=== PATIENT | male | born 1935 | race Caucasian/White ===

== ENCOUNTER → 2018-03-27 14:21 | Outpatient (CLI) | payer MEDICARE, SELFPAY ==
--- NOTE | 2018-03-27 | NVE_ITS ---
Venous Exam IMPRESSIONS 1. There is no evidence of significant Reflux. 2. No evidence of deep or superficial vein thrombosis involving the left lower extremity History: Left lower extremity pain. Patient denies trauma. Swelling of the left lower extremity. Left lower extremity venous duplex evaluation. Doppler flow study including spectral analysis, color and jordan scale imaging. Location: Vascular laboratory. Patient status: Outpatient. Tables: Venous flow and imaging: + +-------+ + Location Overall Flow properties + +-------+ + Left common femoral Patent Normal phasicity; spontaneous; normal augmentation; compressible + +-------+ + Left saphenofemoral junction Patent Compressible + +-------+ + Left profunda femoral Patent Compressible + +-------+ + Left femoral Patent Normal phasicity; spontaneous; normal augmentation; compressible + +-------+ + Left greater saphenous Patent Normal phasicity; spontaneous; normal augmentation; compressible + +-------+ + Left popliteal Patent Normal phasicity; spontaneous; normal augmentation; compressible + +-------+ + Left posterior tibial Patent Compressible + +-------+ + Left peroneal Patent Compressible + +-------+ + Left gastrocnemius Patent Compressible + +-------+ + Left soleal Patent Compressible + +-------+ + (Report amended ) Electronically signed by: Hunter Concepcion [id number]
== END ==
PROVIDERS: Family Provider Family Medicine; PCP Family Medicine; Visit Provider Family Medicine
DX: M79.605 Pain in left leg (principal)
CPT/HCPCS: 93971

== ENCOUNTER → 2018-08-31 10:34 | Outpatient (CLI) | payer MEDICARE, SELFPAY ==
--- NOTE | 2018-08-31 10:50 | CT_ITS ---
CT head/brain wo con HISTORY: ITS.REASON: PARESTHESIS OF LT HAND ORDERING PHYSICIAN: Leena Villasenor PATIENT AGE: 83 years COMPARISON: . 07/07/2008 TECHNIQUE: Axial images obtained without contrast. Brain and bone windows reviewed. All CT scans at the facility use one or more dose reduction, viz: automated exposure control, ma/kV adjustment per patient size (including targeted exams where dose is matched to indication, i.e. head), or iterative reconstruction technique. FINDINGS: No midline shift, mass effect, intracranial hemorrhage, hydrocephalus, or extra-axial fluid collection is evident. 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 The AVM is not apparent on today's study however, exam is evident without contrast. The calvarium has an unremarkable appearance. No mastoid effusion. No sinus air-fluid levels.. IMPRESSION: No acute intracranial findings
== END ==
PROVIDERS: PCP Family Medicine; Visit Provider Nurse Practitioner
DX: R20.2 Paresthesia of skin (principal)
CPT/HCPCS: 70450

== ENCOUNTER → 2020-03-23 09:29 | Outpatient (CLI) | payer MEDICARE, SELFPAY ==
--- NOTE | 2020-03-23 09:44 | XR_ITS ---
PROCEDURE: XR CHEST 2V CLINICAL HISTORY: SOB COMPARISON: CXR CHEST(2 VIEWS-NOT PORTABLE) from 11/03/2014 CXR CHEST(2 VIEWS-NOT PORTABLE) from 03/28/2017 XR CHEST PORTABLE from 02/09/2020 FINDINGS: The cardiomediastinal silhouette and pulmonary vascularity are within normal limits. The lungs are clear without infiltrates, suspicious nodules, or pleural effusions. Surgical clips are present in the epigastric region. No acute bony anomalies. IMPRESSION: No acute findings. Dictated by: Cooper Alonso MD 03/23/2020 11:56 Electronically signed by Cooper Alonso MD in [facility] 03/23/2020 11:56
[2020-03-23 10:36] LABS: Microscopic, Urine URINE MICROSCOPIC (MICROSCOPIC)
[2020-03-23 11:12] LABS: Basophils % 0.5 % (0.1-2.0); Eosinophils # 0.1 K/mm3 (0.0-0.4); Eosinophils % 1.5 % (0.1-12.0); Hemoglobin 14.9 g/dL (14.1-18.0); Lymphocytes # 1.3 K/mm3 (0.7-4.5); Lymphocytes % 30.2 % (10-50); Mean Corpuscular HGB Conc 32.4 g/dL (31.8-35.4); Mean Corpuscular Hemoglobin 30.4 pg (27.0-31.2); Mean Corpuscular Volume 93.7 fl (80-94); Mean Platelet Volume 10.2 fl (7.4-10.4); Monocytes # 0.3 K/mm3 (0.1-1.0); Monocytes % 7.3 % (1.7-9.3); Neutrophils # 2.6 K/mm3 (1.8-7.8); Neutrophils % 60.6 % (37.0-80.0); Platelet Count 178 K/mm3 (142-424); Red Cell Distribution Width 12.9 % (11.5-17.5); White Blood Count 4.3 K/mm3 (4.8-10.8)
[2020-03-23 12:23] LABS: Alanine Aminotransferase 16 U/L (12-78); Albumin Level 4.3 g/dl (3.5-5.0); Albumin/Globulin Ratio 1.7 (1.1-1.8); Alkaline Phosphatase 50 U/L (38-126); Aspartate Amino Transferase 26 U/L (17-59); Bilirubin,Total 0.5 mg/dl (0.2-1.3); Blood Urea Nitrogen 17 mg/dl (9-20); Calcium 9.7 mg/dl (8.4-10.2); Carbon Dioxide 29 mmol/L (22.0-30.0); Chloride 104 mmol/L (98-107); Estimated Glomerular Filt Rate 72 ml/min (>60); GFR (African American) 87 ML/MIN (>60); Globulin 2.6 g/dL (1.3-3.2); Glucose 94 mg/dl (74-100); Sodium 140 mmol/L (136-145); Total Protein,Serum 6.9 g/dl (6.3-8.2)
[2020-03-23 12:32] LABS: NT Pro Brain Natriuretic Pep. 111 pg/mL (0-450)
[2020-03-23 12:54] LABS: Appearance,Urine SL CLOUDY (Clear); Bilirubin,Urine Negative (Negative); Blood, Urine Negative (Negative); Color,Urine YELLOW (Yellow); Glucose,Urine (UA) Negative (Negative); Ketones,Urine Negative (Negative); Leukocyte Esterase,Urine Negative (Negative); Nitrate,Urine Negative (Negative); Protein,Urine Negative (Negative); Thyroid Stimulating Hormone 1.21 uIU/mL (0.465-4.68)
[2020-03-23 13:13] LABS: Amorphous Sediment,Urine 2+ /lpf; Bacteria,Urine Trace /lpf; Squamous Epithelial Cell,Urine Occasional #/hpf (0-5)
== END ==
PROVIDERS: PCP Family Medicine; Visit Provider Family Medicine
DX: R06.02 Shortness of breath (principal); I10 Essential (primary) hypertension
CPT/HCPCS: 36415; 71046; 80053; 81001; 83880; 84443; 85025

== ENCOUNTER → 2021-06-04 10:24 | Outpatient (CLI) | payer MEDICARE, SELFPAY ==
--- NOTE | 2021-06-04 10:27 | CT_ITS ---
PROCEDURE: CT ABDOMEN PELVIS W CON CLINICAL INDICATION: PELVIC PAIN IN MALE Lower abdominal and pelvic pain COMPARISON: No exams were available for comparison TECHNIQUE: IV Contrast: 75ML Isovue 370 Oral Contrast None Axial images obtained with sagittal and coronal reformats. All CT scans at the facility use one or more dose reduction, viz: automated exposure control, ma/kV adjustment per patient size (including targeted exams where dose is matched to indication, i.e. head), or iterative reconstruction technique. FINDINGS: LOWER THORAX: There are extensive coronary artery calcifications present. There is a small hiatal hernia. Epigastric clips are present at the region of the hernia. ABDOMEN & PELVIS: Mild fatty liver. 7 mm isodense changes in the left hepatic lobe inferiorly at the falciform ligament region and may be due to focal fatty infiltration versus a small liver lesion.. A 5 mm hypodensity is present in the right hepatic lobe segment 7 too small to categorize. The spleen, adrenal glands, and pancreas have an unremarkable appearance. There are bilateral parapelvic renal cysts and small right-sided cortical cyst. There is a 4 and a 2 mm stone in the lower pole of the right kidney. No obstructing renal or ureteral calculi. No hydronephrosis. No intestinal obstruction or free air. There is a mild amount of retained colonic feces. No evidence of appendicitis. Scattered colonic diverticula. No evidence of diverticulitis. Prostate is enlarged at 4.8 x 4.4 cm with mild thickening of the urinary bladder wall nonspecific. Multiple pelvic phleboliths are present. There is increased density in the left inguinal canal proximally which could be due to prior hernia repair. Please correlate with surgical history. An enlarged lymph node is an additional consideration. This area measures approximately 2.2 x 1.9 cm. No evidence of inguinal hernia. In the right lower pelvic region laterally there is a 2.3 x 1.6 cm soft tissue density lying between the small bowel and pelvic sidewall anterior and slightly superior to the femoral artery. There are degenerative changes in the lumbar spine. There is an old left 10th rib fracture laterally IMPRESSION: 1. One and possibly 2 hypodense hepatic lesions. These may be due to small cysts too small to categorize. Follow-up may confirm stability. 2. Left nephrolithiasis. Bilateral parapelvic renal cysts. 3. Enlarged prostate with mild thickening of the urinary bladder wall. 4. Soft tissue density left inguinal region which could be due to prior hernia repair, fluid collection, or adenopathy. Small amount fluid or lymph node suspected in the right pelvic region. Follow-up may confirm stability. Dictated by: Cooper Alonso MD 06/04/2021 12:35 Cooper Alonso MD in [facility] 06/04/2021 12:35
== END ==
PROVIDERS: PCP Family Medicine; Visit Provider Family Medicine
DX: R10.2 Pelvic and perineal pain (principal)
CPT/HCPCS: 74177; Q9967

== ENCOUNTER → 2021-06-14 15:40 | Outpatient (CLI) | payer MEDICARE, SELFPAY ==
[2021-06-14 20:26] LABS: Prostate Specific Ag Screen 1.6 ng/ml (0.0-4.0)
== END ==
PROVIDERS: Visit Provider Urology
DX: R97.20 Elevated prostate specific antigen [PSA] (principal); Z12.5 Encounter for screening for malignant neoplasm of prostate
CPT/HCPCS: 36415; G0103

== ENCOUNTER → 2021-07-03 11:32 | Outpatient (CLI) | payer MEDICARE, SELFPAY ==
[2021-07-03 12:16] LABS: Basophils % 0.3 % (0.1-2.0); Eosinophils % 0.1 % (0.1-12.0); Hematocrit 39.9 % (42.0-52.0); Hemoglobin 13.6 g/dL (14.1-18.0); Lymphocytes # 3.2 K/mm3 (0.7-4.5); Lymphocytes % 97.1 % (10-50); Mean Corpuscular HGB Conc 34.2 g/dL (31.8-35.4); Mean Corpuscular Hemoglobin 31.7 pg (27.0-31.2); Mean Corpuscular Volume 92.7 fl (80-94); Mean Platelet Volume 9.2 fl (7.4-10.4); Monocytes % 0.7 % (1.7-9.3); Neutrophils # 0.1 K/mm3 (1.8-7.8); Platelet Count 152 K/mm3 (142-424); Red Cell Distribution Width 14.1 % (11.5-17.5); White Blood Count 3.3 K/mm3 (4.8-10.8)
[2021-07-03 12:37] LABS: Neutrophils % 1.9 % (37.0-80.0)
[2021-07-03 12:40] LABS: MANUAL DIFFERENTIAL MANUAL DIFFERENTIAL (MANUAL DIFF)
[2021-07-03 12:41] LABS: Chloride 106 mmol/L (98-107); Potassium 3.9 mmoL/L (3.5-5.1); Sodium 140 mmol/L (136-145)
[2021-07-03 12:43] LABS: Alanine Aminotransferase 15 U/L (12-78); Aspartate Amino Transferase 30 U/L (17-59); Blood Urea Nitrogen 9 mg/dl (9-20); Estimated Glomerular Filt Rate 71 ml/min (>60); GFR (African American) 86 ML/MIN (>60)
[2021-07-03 12:44] LABS: Albumin Level 4.3 g/dl (3.5-5.0); Albumin/Globulin Ratio 1.5 (1.1-1.8); Alkaline Phosphatase 93 U/L (38-126); Anion Gap 13.9 mEq/L (5-15); Bilirubin,Total 0.6 mg/dl (0.2-1.3); Calcium 9.6 mg/dl (8.4-10.2); Carbon Dioxide 24 mmol/L (22.0-30.0); Eosinophils % 13 % (0-3); Globulin 2.8 g/dL (1.3-3.2); Glucose 87 mg/dl (74-100); Lymphocytes % 17 % (10-50); Monocytes % 10 % (2-9); Neutrophils % 59 % (42-76); Total Cells Counted 100; Total Protein,Serum 7.1 g/dl (6.3-8.2)
[2021-07-03 12:45] LABS: Anisocytosis 1+; Hypochromasia 1+; Microcytosis 1+; Platelet Estimate Normal
== END ==
PROVIDERS: Visit Provider Family Medicine
DX: K52.9 Noninfective gastroenteritis and colitis, unspecified (principal)
CPT/HCPCS: 36415; 80053; 85007; 85025

== ENCOUNTER 2021-07-03 13:28 | Emergency (ER) | payer MEDICARE, SELFPAY ==
[2021-07-03 13:29] VITALS: BP 142/83; PULSE 90; RESP 14; TEMP 36.8; O2SAT 96; BMI 27.1
--- NOTE | 2021-07-03 13:47 | HMH.EDGENADL ---
ED Disposition Clinical Impression: Diarrhea Disposition: Home, Self-Care Condition on Discharge: Good Additional Instructions: continue home meds. Drink plenty of fluid. Return to ED if new symptoms. Referrals: Alberto Skinner MD [Primary Care Provider] - - Critical Care Critical Care Time: No Attestation: On , the high probability of a clinically significant, sudden or life threatening deterioration of the following system(s) required my full and direct attention, intervention and personal management. The time I documented below is in addition to time spent performing reported procedures but includes the following listed in this critical care notation. Medical Decision Making - Medical Records MR Comment: patient received one liter of fluid.general labs were ordered. all labs were normal. Abdominal exam is benign. He felt normal after IV fluid. - Viraj Inquiry Pt receiving controlled substance: No Viraj was queried for this patient: No Vital Signs: 07/03/21 13:29 07/03/21 14:15 Temperature 98.3 F Temperature Source Oral Pulse Rate 77 Pulse Rate [Right] 90 Respiratory Rate 14 Blood Pressure 160/88 H Blood Pressure [Right Arm] 142/83 H Blood Pressure Mean [Right Arm] 102 02 Sat by Pulse Oximetry 96 97 Oxygen Delivery Method Room Air - Lab Data Lab Results 07/03/21 14:00: Urine Color Yellow, Urine Appearance Clear, Urine pH 5.0, Ur Specific [place] <= 1.005, Urine Protein Negative, Urine Glucose (UA) Negative, Urine Ketones Negative, Urine Blood Negative, Urine Nitrate Negative, Urine Bilirubin Negative, Urine Urobilinogen 0.2, Ur Leukocyte Esterase Negative, Urine RBC None, Urine WBC 3-5, Ur Squamous Epith Cells Occasional, Urine Bacteria None 07/03/21 14:00: WBC 7.0 D, RBC 4.82, Hgb 14.6, Hct 44.0, MCV 91.2, MCH 30.3, MCHC 33.2, RDW 14.0, Plt Count 179, MPV 8.8, Neut % (Auto) 65.4, Lymph % (Auto) 16.6, [place] % (Auto) 5.9, Eos % (Auto) 11.4, Baso % (Auto) 0.6, Neut # (Auto) 4.6, Lymph # (Auto) 1.2, [place] # (Auto) 0.4, Eos # (Auto) 0.8 H, Baso # (Auto) 0.0 07/03/21 14:00: Sodium 140, Potassium 3.6, Chloride 105, Carbon Dioxide 24, Anion Gap 14.6, BUN 8 L, Creatinine 0.90, Estimated Creat Clear 72, Estimated GFR 81, Est GFR ( Amer) 98, Glucose 88, Calcium 8.8, Total Bilirubin 0.8, AST 33, ALT 15, Alkaline Phosphatase 80, Total Protein 6.6, Albumin 4.0, Globulin 2.6, Albumin/Globulin Ratio 1.5 Result diagrams: 07/03/21 14:00 07/03/21 14:00 Orders (Tests/Meds): ED MEDICATIONS Generic Name Dose Route Start Last Admin Trade Name Freq PRN Reason Stop Dose Admin Sodium Chloride 1,000 mls @ 999 mls/hr 07/03/21 14:00 07/03/21 13:58 Sod Chlor 0.9% 1000ml Bag IV 07/03/21 15:00 999 mls/hr .Q1H1M DEN Administration General Adult HPI - General Stated complaint: possible dehydration, diarrhea for a week, passed Time Seen by Provider: 07/03/21 13:47 - History of Present Illness HPI narrative: 85 year old male.he had diarrhea for the past few days, stopped today, he has no appetite, his son thought that he may be dehydrated. no fever. no vomiting. no abdominal pain. - Related Data Home Medications Medication Instructions Recorded Confirmed Ergocalciferol (Vitamin D2) 1 tab PO DAILY 02/09/20 06/27/21 [Drisdol 50,000 units (1.25mg) capsule] Fenofibrate,Micronized [Tricor 1 tab PO DAILY 02/09/20 06/27/21 134mg] Latanoprost [Xalatan 0.005% Ophth 1 drops EYE-BOTH HS 02/09/20 06/27/21 Soln 2.5mL] Ramipril 20 mg PO DAILY 02/09/20 06/27/21 Simvastatin 1 tab PO DAILY 02/09/20 06/27/21 Tamsulosin HCl 1 tab PO DAILY 02/09/20 06/27/21 amlodipine 10 mg tablet 10 mg PO DAILY tab 06/27/21 06/27/21 trazodone 50 mg tablet 50 mg PO DAILY tab 06/27/21 06/27/21 Allergies Allergy/AdvReac Type Severity Reaction Status Date / Time Penicillin Allergy Unknown Uncoded 06/14/21 15:03 [facility] History - Hepatitis A Screen Attestation statement:: This patient
[2021-07-03 14:06] LABS: Microscopic, Urine URINE MICROSCOPIC (MICROSCOPIC)
[2021-07-03 14:10] LABS: Appearance,Urine CLEAR (Clear); Bilirubin,Urine Negative (Negative); Blood, Urine Negative (Negative); Color,Urine YELLOW (Yellow); Glucose,Urine (UA) Negative (Negative); Ketones,Urine Negative (Negative); Leukocyte Esterase,Urine Negative (Negative); Nitrate,Urine Negative (Negative); Protein,Urine Negative (Negative); Specific Gravity, Urine <= 1.005 (1.005-1.030); Urobilinogen,Urine 0.2 EU/dl (0.2)
[2021-07-03 14:12] LABS: Basophils % 0.6 % (0.1-2.0); Eosinophils # 0.8 K/mm3 (0.0-0.4); Eosinophils % 11.4 % (0.1-12.0); Hemoglobin 14.6 g/dL (14.1-18.0); Lymphocytes # 1.2 K/mm3 (0.7-4.5); Lymphocytes % 16.6 % (10-50); Mean Corpuscular HGB Conc 33.2 g/dL (31.8-35.4); Mean Corpuscular Hemoglobin 30.3 pg (27.0-31.2); Mean Corpuscular Volume 91.2 fl (80-94); Mean Platelet Volume 8.8 fl (7.4-10.4); Monocytes # 0.4 K/mm3 (0.1-1.0); Monocytes % 5.9 % (1.7-9.3); Neutrophils # 4.6 K/mm3 (1.8-7.8); Neutrophils % 65.4 % (37.0-80.0); Platelet Count 179 K/mm3 (142-424); Red Blood Count 4.82 M/mm3 (4.60-6.20)
[2021-07-03 14:15] VITALS: BP 160/88; PULSE 77; O2SAT 97
[2021-07-03 14:19] LABS: Squamous Epithelial Cell,Urine Occasional #/hpf (0-5)
[2021-07-03 14:26] LABS: Alanine Aminotransferase 15 U/L (12-78); Albumin/Globulin Ratio 1.5 (1.1-1.8); Alkaline Phosphatase 80 U/L (38-126); Anion Gap 14.6 mEq/L (5-15); Aspartate Amino Transferase 33 U/L (17-59); Bilirubin,Total 0.8 mg/dl (0.2-1.3); Blood Urea Nitrogen 8 mg/dl (9-20); Calcium 8.8 mg/dl (8.4-10.2); Carbon Dioxide 24 mmol/L (22.0-30.0); Chloride 105 mmol/L (98-107); Creatinine Clearance Estimated 72 mL/min (50-200); Estimated Glomerular Filt Rate 81 ml/min (>60); GFR (African American) 98 ML/MIN (>60); Globulin 2.6 g/dL (1.3-3.2); Glucose 88 mg/dl (74-100); Potassium 3.6 mmoL/L (3.5-5.1); Sodium 140 mmol/L (136-145); Total Protein,Serum 6.6 g/dl (6.3-8.2)
[2021-07-03 14:40] VITALS: BP 158/88; PULSE 67; RESP 18; TEMP 36.7; O2SAT 97
== END 2021-07-03 14:50 | disposition home or self-care (01) ==
LOC: ER 13:54
PROVIDERS: Emergency Provider Internal Medicine; PCP Family Medicine
DX: R19.7 Diarrhea, unspecified (principal); J45.909 Unspecified asthma, uncomplicated; I10 Essential (primary) hypertension
CPT/HCPCS: 36415; 80053; 81001; 85007; 85025; 96365; 99283

== ENCOUNTER 2021-07-08 02:46 | Emergency (ER) | payer MEDICARE, SELFPAY ==
[2021-07-08 02:47] VITALS: BP 128/71; PULSE 79; RESP 22; TEMP 36.6; O2SAT 96; BMI 27.1
[2021-07-08 03:00] VITALS: BMI 27.1
--- NOTE | 2021-07-08 03:04 | XR_ITS ---
PROCEDURE INFORMATION: Exam: XR Chest Exam date and time: 07/08/2021 3:04 AM Age: 85 years old Clinical indication: Shortness of breath; Patient HX: Short of air; Additional info: SOA TECHNIQUE: Imaging protocol: XR of the chest. Views: 2 views. COMPARISON: CR XR CHEST 2V 03/23/2020 10:16 AM FINDINGS: Lungs: Bilateral apical scarring. Mild bibasilar atelectasis. Pleural spaces: Unremarkable. No pleural effusion. No pneumothorax. Heart/Mediastinum: Unremarkable. No cardiomegaly. Bones/joints: Unremarkable. Soft tissues: Upper abdominal surgical clips. IMPRESSION: No acute findings.
--- NOTE | 2021-07-08 03:08 | ECG_ITS ---
APPROVED REPORT Exam: Resting ECG HR:68 bpm ECG Measurements Heart Rate 68 AXES PA 188 P 55 QRSd 84 QRS 33 QT 416 T 70 QTc 442 Conclusion Sinus rhythm with occasional premature ventricular complexes Nonspecific ST and T wave abnormality Abnormal ECG Electronically signed by : Orlin Villarreal MD 07/11/2021 11:52:10
[2021-07-08 03:11] LABS: Coronavirus 19, PCR Not Detected (NotDetected); Influenza A, PCR Not Detected (NotDetected); Influenza B, PCR Not Detected (NotDetected)
[2021-07-08 03:14] LABS: Basophils # 0.1 K/mm3 (0-0.2); Basophils % 0.9 % (0.1-2.0); Eosinophils # 0.4 K/mm3 (0.0-0.4); Eosinophils % 7.4 % (0.1-12.0); Lymphocytes # 1.3 K/mm3 (0.7-4.5); Lymphocytes % 22.8 % (10-50); Mean Corpuscular HGB Conc 32.5 g/dL (31.8-35.4); Mean Corpuscular Hemoglobin 30.2 pg (27.0-31.2); Mean Corpuscular Volume 92.9 fl (80-94); Monocytes # 0.5 K/mm3 (0.1-1.0); Neutrophils # 3.5 K/mm3 (1.8-7.8); Neutrophils % 59.9 % (37.0-80.0); Platelet Count 172 K/mm3 (142-424); Red Blood Count 4.95 M/mm3 (4.60-6.20); White Blood Count 5.8 K/mm3 (4.8-10.8)
[2021-07-08 03:16] LABS: Alanine Aminotransferase 18 U/L (12-78); Albumin/Globulin Ratio 1.4 (1.1-1.8); Alkaline Phosphatase 70 U/L (38-126); Anion Gap 11.4 mEq/L (5-15); Aspartate Amino Transferase 28 U/L (17-59); Blood Urea Nitrogen 11 mg/dl (9-20); Calcium 9.2 mg/dl (8.4-10.2); Carbon Dioxide 28 mmol/L (22.0-30.0); Chloride 105 mmol/L (98-107); Creatinine Clearance Estimated 72 mL/min (50-200); Estimated Glomerular Filt Rate 81 ml/min (>60); GFR (African American) 98 ML/MIN (>60); Globulin 2.8 g/dL (1.3-3.2); Glucose 115 mg/dl (74-100); Magnesium 1.8 mg/dl (1.6-2.3); Potassium 3.4 mmoL/L (3.5-5.1); Sodium 141 mmol/L (136-145); Total Protein,Serum 6.8 g/dl (6.3-8.2)
[2021-07-08 03:21] LABS: C-Reactive Protein 4.7 mg/L (0-4)
[2021-07-08 03:30] LABS: Troponin I < 0.01 ng/ml (0.00-0.034)
[2021-07-08 03:35] LABS: Procalcitonin 0.053 ng/mL (0.0-2.0)
[2021-07-08 03:38] LABS: Erythrocyte Sedimentation Rate 4 mm/hr (0-20)
[2021-07-08 03:49] LABS: Appearance,Urine CLEAR (Clear); Bilirubin,Urine Negative (Negative); Blood, Urine Negative (Negative); Color,Urine YELLOW (Yellow); Glucose,Urine (UA) Negative (Negative); Ketones,Urine Negative (Negative); Leukocyte Esterase,Urine Negative (Negative); Microscopic, Urine URINE MICROSCOPIC (MICROSCOPIC); Nitrate,Urine Negative (Negative); Protein,Urine Negative (Negative); Specific Gravity, Urine 1.015 (1.005-1.030)
[2021-07-08 03:53] LABS: NT Pro Brain Natriuretic Pep. 101 pg/mL (0-450)
[2021-07-08 03:54] LABS: Mucus,Urine Trace /lpf; Squamous Epithelial Cell,Urine Occasional #/hpf (0-5)
--- NOTE | 2021-07-08 03:55 | HMH.EDSOB ---
ED Disposition Clinical Impression: Dyspnea Qualifiers: Dyspnea type: unspecified Qualified Code(s): R06.00 - Dyspnea, unspecified Disposition: Home, Self-Care Condition on Discharge: Good Instructions: DI for Shortness of Breath Additional Instructions: call pcp for follow up Referrals: Alberto Skinner MD [Primary Care Provider] - - Critical Care Critical Care Time: No Attestation: On 07/08/21, the high probability of a clinically significant, sudden or life threatening deterioration of the following system(s) required my full and direct attention, intervention and personal management. The time I documented below is in addition to time spent performing reported procedures but includes the following listed in this critical care notation. Medical Decision Making - Medical Records Medical records reviewed: Yes: I reviewed the patient's medical records. - Viraj Inquiry Pt receiving controlled substance: No Vital Signs: 07/08/21 02:47 07/08/21 04:00 07/08/21 05:01 Temperature 97.9 F Temperature Source Oral Pulse Rate 58 L 70 Pulse Rate [Right] 79 Respiratory Rate 22 Blood Pressure 119/66 155/82 H Blood Pressure [Right Arm] 128/71 Blood Pressure Mean 102 Blood Pressure Mean [Right Arm] 90 Blood Pressure Source [Right Arm] Automatic Cuff 02 Sat by Pulse Oximetry 96 94 L 95 Oxygen Delivery Method Room Air Room Air - Lab Data Lab results reviewed: Yes: I reviewed the patient's lab results. Lab Results 07/08/21 02:58: WBC 5.8, RBC 4.95, Hgb 15.0, Hct 46.0, MCV 92.9, MCH 30.2, MCHC 32.5, RDW 14.0, Plt Count 172, MPV 9.0, Neut % (Auto) 59.9, Lymph % (Auto) 22.8, [place] % (Auto) 9.0, Eos % (Auto) 7.4, Baso % (Auto) 0.9, Neut # (Auto) 3.5, Lymph # (Auto) 1.3, [place] # (Auto) 0.5, Eos # (Auto) 0.4, Baso # (Auto) 0.1, ESR 4 07/08/21 02:58: Sodium 141, Potassium 3.4 L, Chloride 105, Carbon Dioxide 28, Anion Gap 11.4, BUN 11, Creatinine 0.90, Estimated Creat Clear 72, Estimated GFR 81, Est GFR ( Amer) 98, Glucose 115 H, Calcium 9.2, Magnesium 1.8, Total Bilirubin 1.0, AST 28, ALT 18, Alkaline Phosphatase 70, Troponin I < 0.01, C-Reactive Protein 4.7 H, Total Protein 6.8, Albumin 4.0, Globulin 2.8, Albumin/Globulin Ratio 1.4, Procalcitonin 0.053 07/08/21 02:58: SARS-CoV-2 (PCR) Not detected, Influenza A Untype (PCR) Not detected, Influenza Type B (PCR) Not detected 07/08/21 02:58: NT-Pro-B Natriuret Pep 101 07/08/21 03:45: Urine Color Yellow, Urine Appearance Clear, Urine pH 6.0, Ur Specific [place] 1.015, Urine Protein Negative, Urine Glucose (UA) Negative, Urine Ketones Negative, Urine Blood Negative, Urine Nitrate Negative, Urine Bilirubin Negative, Urine Urobilinogen 1.0, Ur Leukocyte Esterase Negative, Urine WBC 3-5, Ur Squamous Epith Cells Occasional, Urine Mucus Trace Result diagrams: 07/08/21 02:58 07/08/21 02:58 Orders (Tests/Meds): ED MEDICATIONS Generic Name Dose Route Start Last Admin Trade Name Freq PRN Reason Stop Dose Admin Lactated Ringer's 1,000 mls @ 999 mls/hr 07/08/21 03:15 07/08/21 03:05 Lactated Ringer's 1000 Ml Bag IV 07/08/21 04:15 999 mls/hr .Q1H1M DEN Administration Discontinued Medications Generic Name Dose Route Start Last Admin Trade Name Freq PRN Reason Stop Dose Admin Iopamidol 70 ml 07/08/21 04:45 07/08/21 04:46 Iopamidol-370 (76%);100ml Bottle IV 07/08/21 04:46 70 ml ONCE ONE Administration Methylprednisolone Sodium Succinate 125 mg 07/08/21 03:04 07/08/21 03:05 Methylprednisolone Sod Succ 125mg Vial IV 07/08/21 03:05 125 mg ONCE ONE Administration Sodium Chloride 10 ml 07/08/21 04:45 07/08/21 04:46 Sodium Chloride 0.9% 10ml Syr (Rad Only) IV 07/08/21 04:46 10 ml ONCE ONE Administration ORDERS Category Date Time Status Troponin I Q3H Lab 07/08/21 06:15 Ordered Troponin I Q3H Lab 07/08/21 09:15 Ordered - Radiology Data #1 Image(s): Chest Image Reviewed: Yes I reviewed the patient'
--- NOTE | 2021-07-08 03:58 | CT_ITS ---
PROCEDURE INFORMATION: Exam: CTA Chest With Contrast Exam date and time: 07/08/2021 3:58 AM Age: 85 years old Clinical indication: Dyspnea and shortness of breath; Patient HX: SOB and dyspnea; Additional info: Shortness of air TECHNIQUE: Imaging protocol: Computed tomographic angiography of the chest with contrast. 3D rendering (Not supervised by radiologist): MIP and/or 3D reconstructed images were created by the technologist. Radiation optimization: All CT scans at this facility use at least one of these dose optimization techniques: automated exposure control; mA and/or kV adjustment per patient size (includes targeted exams where dose is matched to clinical indication); or iterative reconstruction. Contrast material: ISOVUE 370; Contrast volume: 70 ml; Contrast route: INTRAVENOUS (IV); COMPARISON: CR XR CHEST 2V 07/08/2021 3:11 AM FINDINGS: Pulmonary arteries: Normal. No pulmonary emboli. Aorta: Unremarkable. No aortic aneurysm. No aortic dissection. Lungs: Unremarkable. No consolidation. No masses. Pleural spaces: Unremarkable. No pneumothorax. No pleural effusion. Heart: Unremarkable. No cardiomegaly. No pericardial effusion. Mediastinal space: There is a hiatal hernia. Lymph nodes: Unremarkable. No enlarged lymph nodes. Bones/joints: Unremarkable. No acute fracture. Soft tissues: Unremarkable. Other findings: There are fibrotic changes at the apices. IMPRESSION: No acute findings.
[2021-07-08 04:00] VITALS: BP 119/66; PULSE 58; O2SAT 94
[2021-07-08 05:01] VITALS: BP 155/82; PULSE 70; O2SAT 95
[2021-07-08 05:24] VITALS: BP 165/90; O2SAT 97
[2021-07-08 05:31] VITALS: BP 130/80; PULSE 80; O2SAT 95
[2021-07-08 05:58] VITALS: BP 133/68; PULSE 71; RESP 18; TEMP 36.7; O2SAT 95
== END 2021-07-08 06:22 | disposition home or self-care (01) ==
PROVIDERS: Emergency Provider Emergency Medicine; PCP Family Medicine
DX: R06.00 Dyspnea, unspecified (principal); R53.83 Other fatigue; I10 Essential (primary) hypertension; Z20.822 Contact with and (suspected) exposure to COVID-19; J45.909 Unspecified asthma, uncomplicated; Z79.899 Other long term (current) drug therapy
CPT/HCPCS: 71046; 71275; 80053; 81001; 83735; 83880; 84145; 84484; 85025; 85651; 86140; 93005; 96365; 96375; 99284; Q9967; U0003

== ENCOUNTER → 2021-07-17 12:38 | Outpatient (CLI) | payer MEDICARE, SELFPAY ==
--- NOTE | 2021-07-17 12:50 | CA_ITS ---
APPROVED REPORT EXAM: Comprehensive 2D, Doppler, and color-flow Echocardiogram Automation Engineering Technician: Olivia Valencia RT(R) Ht: 6 ft 0 in Wt: 180lbs BSA: 2.04 BP: 155/82 mmHg Indications: SOA, HTN, GONZALEZ, asthma, dizziness 2D Dimensions LVOT 2.24 cm (M/F) 1.5-2.5 LVEF (Goodman's) 64.90 % M: 52 - 72 LV Volume 85.80 mL M: 62 - 150 LV Volume Index 42.26 mL/m2 M: 34 - 74 M-Mode Dimensions RVDd 3.22 cm (0.9-2.6) LA Diam 2.96 cm (1.9-4.0) LVDd 3.08 cm (3.5-5.7) Ao Diam 2.74 cm (2.0-3.7) LVDs 1.97 cm (3.5-5.7) IVSd 1.21 cm (0.6-1.1) PWd 1.03 cm (0.6-1.1) EF (Teich) 67.30% FS 36.00% EDV (Teich) 37.30 mL ESV (Teich) 12.20 mL LV Diastology E Decel Time 220.00 (160-240 msec) E/A Ratio 0.5 MED E' 12.20 (< 7 cm/sec) E'/MED E' Ratio 4.60 (>14) LAT E' 11.00 (<10 cm/sec) E/LAT E' Ratio 5.10 (>14) Aortic Valve LVOT Max 94.00 (70-110 cm/s) LVOT VTI 17.49 cm AoV Peak Renaldo. 180.00 (50-130 cm/s) AO Peak GR. 12.90 mmHg AO Mean GR. 6.30 (<5 mmHg) AO VTI 29.47 (18-25 cm) COLLEEN (VTI) 2.34 (2.5-4.5 cm2) Mitral Valve MV E Max Renaldo. 56.00 (40-130 cm/s) MV A Velocity 104.00 (40-130 cm/s) E/A Ratio 0.54 MV Decel. Time 220.00 (160-240 ms) MV PHT 64.00 ms Left Ventricle Left atrium is mildly enlarged, left ventricle is normal size, mild concentric left ventricular hypertrophy, visually estimated ejection fraction 55% with no regional wall motion abnormality, grade 1 diastolic dysfunction seen without tissue Doppler evidence of raise left atrial pressure. Right Ventricle Right atrium and right ventricle mildly enlarged with normal contractility. Aortic Valve Aortic valve is thickened and calcified without Doppler evidence of aortic stenosis or aortic insufficiency. Mitral Valve Mitral valve grossly normal, there is mild mitral regurgitation. Tricuspid Valve Tricuspid valve grossly normal, there is mild tricuspid regurgitation, tricuspid regurgitation jet velocity is inadequate for calculation of the right ventricular systolic pressure. Pulmonic Valve Pulmonic valve is poorly visualized. Great Vessels Aortic root is normal size. Inferior vena cava is not well visualized. Pericardium No significant pericardial effusion noted. Conclusion 1. Mild biatrial enlargement, normal left ventricular size, mild concentric left ventricular hypertrophy, visually estimated ejection fraction 55% with no regional wall motion abnormality, grade 1 diastolic dysfunction seen without tissue Doppler evidence of raise left atrial pressure. 2. Mildly enlarged right ventricle with normal contractility 3. Thickened and calcified aortic valve without aortic stenosis or aortic insufficiency. 4. Mild mitral and tricuspid regurgitation. 5. No significant pericardial effusion noted. Electronically signed by : Leroy Jensen MD 07/17/2021 18:35:36
--- NOTE | 2021-07-17 12:51 | CA_ITS ---
APPROVED REPORT Bilateral Lower Extremity Venous Study for DVT. Top Screw: Kirstin Stock RCS, RVS Indications Lower Extremity Pain: Left Vein Imaging CFV (L): compressive, spontaneous, phasic, augmentation SFJ (L): compressive, spontaneous, phasic, augmentation FEM (L): compressive, spontaneous, phasic, augmentation POP (L): compressive, spontaneous, phasic, augmentation DFV (L): compressive, spontaneous, phasic, augmentation PTV (L): compressive, spontaneous, phasic, augmentation GSV (L): compressive, spontaneous, phasic, augmentation SSV (L): compressive, spontaneous, phasic, augmentation Peroneals (L):compressive, spontaneous, phasic, augmentation GAS (L): compressive, spontaneous, phasic, augmentation Findings Color flow duplex demonstrates no evidence of DVT of the following left lower extremity Veins:Common Femoral Vein, Femoral Vein, Popliteal Vein, Posterior Tibial Veins, Peroneal Veins, Deep Femoral Vein. Negative for DVT. Conclusion Negative for DVT. Electronically signed by : Cooper Alonso MD 07/17/2021 16:39:23
== END ==
PROVIDERS: PCP Family Medicine; Visit Provider Family Medicine
DX: R06.02 Shortness of breath (principal); M79.605 Pain in left leg
CPT/HCPCS: 93306; 93971

== ENCOUNTER 2021-07-25 05:59 | Emergency (ER) | payer MEDICARE, SELFPAY ==
--- NOTE | 2021-07-25 06:07 | ECG_ITS ---
APPROVED REPORT Exam: Resting ECG HR:69 bpm ECG Measurements Heart Rate 69 AXES WA 160 P 38 QRSd 90 QRS 36 QT 424 T 68 QTc 454 Conclusion Normal sinus rhythm Normal ECG Electronically signed by : Orlin Villarreal MD 07/25/2021 17:43:23
[2021-07-25 06:11] VITALS: BP 125/72; PULSE 73; RESP 17; TEMP 36.8; O2SAT 96; BMI 24.4
--- NOTE | 2021-07-25 06:19 | CT_ITS ---
PROCEDURE: CT ABDOMEN PELVIS W CON CLINICAL INDICATION: abd pain Abdominal pain with diarrhea COMPARISON: No exams were available for comparison TECHNIQUE: IV Contrast: 75ML Isovue 370 Oral Contrast None Axial images obtained with sagittal and coronal reformats. All CT scans at the facility use one or more dose reduction, viz: automated exposure control, ma/kV adjustment per patient size (including targeted exams where dose is matched to indication, i.e. head), or iterative reconstruction technique. FINDINGS: LOWER THORAX: No acute finding ABDOMEN & PELVIS: There is a small hiatal hernia. Surgical clips are present at the GE junction. There are 3 small hypodense hepatic lesions as previously described the largest in the left hepatic lobe at 7 mm unchanged possibly due to small cysts. There is mild gallbladder wall thickening. The spleen is unremarkable. Minimal nodularity of the right adrenal gland nonspecific unchanged. Unremarkable appearing pancreas. There are bilateral renal cysts. Two nonobstructing calculi are present in the lower pole of the left kidney at 3 mm each. No ureteral calculi. No hydronephrosis. No intestinal obstruction or free air. Unremarkable appendix. The prostate is enlarged. Bladder wall is mildly thickened. The urinary bladder is nondistended. There are several small hyperdensities along the urinary bladder wall posteriorly on the left. These are of questionable clinical significance and may be due to small vessels. There is colonic diverticulosis. No evidence of diverticulitis. The sigmoid colon is redundant. There are degenerative changes in the lumbar spine. There is mild dilatation of the common iliac arteries at 1.5 cm on the right and 1.3 cm on the left. Increased density is once again noted in the left inguinal region and may be due to prior hernia repair. Postsurgical changes are present involving the anterior abdominal wall. IMPRESSION: 1. No acute finding. 2. Mild gallbladder wall thickening nonspecific 3. Nonobstructing left nephrolithiasis. 4. Mild thickening of the urinary bladder wall possibly due to nondistention. Punctate foci of increased density are present along the urinary bladder wall on the left posteriorly of uncertain clinical significance. Follow-up may confirm stability. Dictated by: Cooper Alonso MD 07/25/2021 08:14 Cooper Alonso MD in [facility] 07/25/2021 08:14
[2021-07-25 06:29] LABS: Basophils % 0.6 % (0.1-2.0); Eosinophils # 0.3 K/mm3 (0.0-0.4); Eosinophils % 4.8 % (0.1-12.0); Hematocrit 45.1 % (42.0-52.0); Hemoglobin 14.7 g/dL (14.1-18.0); Lymphocytes # 1.3 K/mm3 (0.7-4.5); Lymphocytes % 25.2 % (10-50); Mean Corpuscular HGB Conc 32.7 g/dL (31.8-35.4); Mean Corpuscular Hemoglobin 31.1 pg (27.0-31.2); Mean Corpuscular Volume 95.1 fl (80-94); Mean Platelet Volume 9.4 fl (7.4-10.4); Monocytes # 0.4 K/mm3 (0.1-1.0); Monocytes % 6.6 % (1.7-9.3); Neutrophils # 3.3 K/mm3 (1.8-7.8); Neutrophils % 62.8 % (37.0-80.0); Platelet Count 264 K/mm3 (142-424); Red Blood Count 4.74 M/mm3 (4.60-6.20); Red Cell Distribution Width 13.7 % (11.5-17.5); White Blood Count 5.2 K/mm3 (4.8-10.8)
--- NOTE | 2021-07-25 06:30 | XR_ITS ---
PROCEDURE: XR CHEST PORTABLE CLINICAL HISTORY: weakness COMPARISON: CR XR CHEST PORTABLE from 02/09/2020 CR XR CHEST 2V from 03/23/[address] ANGIO CHEST PE PROTOCOL from 07/08/2021 CR XR CHEST 2V from 07/08/2021 FINDINGS: The cardiomediastinal silhouette and pulmonary vascularity are within normal limits. The lungs are clear without infiltrates, suspicious nodules, or pleural effusions. No acute bony abnormalities. IMPRESSION: No acute findings. Dictated by: Cooper Alonso MD 07/25/2021 08:15 Cooper Alonso MD in [facility] 07/25/2021 08:15
[2021-07-25 06:38] LABS: Alanine Aminotransferase 15 U/L (12-78); Albumin Level 3.8 g/dl (3.5-5.0); Albumin/Globulin Ratio 1.4 (1.1-1.8); Alkaline Phosphatase 59 U/L (38-126); Amylase 47 U/L (30-110); Aspartate Amino Transferase 21 U/L (17-59); Bilirubin,Total 0.6 mg/dl (0.2-1.3); Blood Urea Nitrogen 10 mg/dl (9-20); Calcium 9.5 mg/dl (8.4-10.2); Carbon Dioxide 29 mmol/L (22.0-30.0); Creatinine Clearance Estimated 59 mL/min (50-200); Estimated Glomerular Filt Rate 64 ml/min (>60); GFR (African American) 77 ML/MIN (>60); Globulin 2.8 g/dL (1.3-3.2); Glucose 107 mg/dl (74-100); Lipase 80 U/L (23-300); Potassium 3.4 mmoL/L (3.5-5.1); Sodium 139 mmol/L (136-145); Total Protein,Serum 6.6 g/dl (6.3-8.2)
[2021-07-25 06:47] LABS: Microscopic, Urine URINE MICROSCOPIC (MICROSCOPIC)
--- NOTE | 2021-07-25 06:54 | HMH.EDWEAK ---
ED Disposition Clinical Impression: Weakness Disposition: Home, Self-Care Condition on Discharge: Good Instructions: Diarrhea Additional Instructions: fluids and see pcp for follow up Referrals: Alberto Skinner MD [Primary Care Provider] - - Critical Care Critical Care Time: No Attestation: On 07/25/21, the high probability of a clinically significant, sudden or life threatening deterioration of the following system(s) required my full and direct attention, intervention and personal management. The time I documented below is in addition to time spent performing reported procedures but includes the following listed in this critical care notation. Medical Decision Making - Medical Records Medical records reviewed: Yes: I reviewed the patient's medical records. - Viraj Inquiry Pt receiving controlled substance: No Vital Signs: 07/25/21 06:11 07/25/21 07:20 Temperature 98.2 F Temperature Source Oral Pulse Rate [Orthostatic Lying Left Radial] 59 L Pulse Rate [Orthostatic Sitting Left Radial] 68 Pulse Rate [Orthostatic Standing Left Radial] 64 Pulse Rate [Right Brachial] 73 Respiratory Rate 17 Blood Pressure [Orthostatic Lying Right Arm] 122/68 Blood Pressure [Orthostatic Sitting Right Arm] 119/61 Blood Pressure [Orthostatic Standing Right Arm] 132/65 Blood Pressure [Right Arm] 125/72 Blood Pressure Mean [Right Arm] 89 Blood Pressure Source [Right Arm] Automatic Cuff Blood Pressure Position [Right Arm] Sitting 02 Sat by Pulse Oximetry 96 Oxygen Delivery Method Room Air - Lab Data Lab results reviewed: Yes: I reviewed the patient's lab results. Lab Results 07/25/21 06:18: Urine Color Yellow, Urine Appearance Clear, Urine pH 7.0, Ur Specific [place] 1.010, Urine Protein Negative, Urine Glucose (UA) Negative, Urine Ketones Negative, Urine Blood Negative, Urine Nitrate Negative, Urine Bilirubin Negative, Urine Urobilinogen 1.0, Ur Leukocyte Esterase Negative, Urine RBC None, Urine WBC 3-5, Ur Squamous Epith Cells Occasional, Urine Bacteria None 07/25/21 06:18: WBC 5.2, RBC 4.74, Hgb 14.7, Hct 45.1, MCV 95.1 H, MCH 31.1, MCHC 32.7, RDW 13.7, Plt Count 264, MPV 9.4, Neut % (Auto) 62.8, Lymph % (Auto) 25.2, [place] % (Auto) 6.6, Eos % (Auto) 4.8, Baso % (Auto) 0.6, Neut # (Auto) 3.3, Lymph # (Auto) 1.3, [place] # (Auto) 0.4, Eos # (Auto) 0.3, Baso # (Auto) 0.0 07/25/21 06:18: Sodium 139, Potassium 3.4 L, Chloride 103, Carbon Dioxide 29, Anion Gap 10.4, BUN 10, Creatinine 1.10, Estimated Creat Clear 59, Estimated GFR 64, Est GFR ( Amer) 77, Glucose 107 H, Calcium 9.5, Total Bilirubin 0.6, AST 21, ALT 15, Alkaline Phosphatase 59, Total Protein 6.6, Albumin 3.8, Globulin 2.8, Albumin/Globulin Ratio 1.4, Amylase 47, Lipase 80 07/25/21 06:18: Lactate 1.0 07/25/21 06:18: Troponin I < 0.01, TSH 0.86, Thyroxine (T4) 12.3 H 07/25/21 06:18: NT-Pro-B Natriuret Pep 92.9 07/25/21 06:18: ESR 13 07/25/21 06:18: C-Reactive Protein 4.5 H Result diagrams: 07/25/21 06:18 07/25/21 06:18 Orders (Tests/Meds): ED MEDICATIONS Generic Name Dose Route Start Last Admin Trade Name Freq PRN Reason Stop Dose Admin Sodium Chloride 1,000 mls @ 999 mls/hr 07/25/21 06:45 07/25/21 06:46 Sod Chlor 0.9% 1000ml Bag IV 07/25/21 07:45 999 mls/hr .Q1H1M DEN Administration Discontinued Medications Generic Name Dose Route Start Last Admin Trade Name Freq PRN Reason Stop Dose Admin Iopamidol 75 ml 07/25/21 07:29 07/25/21 07:30 Iopamidol-370 (76%);100ml Bottle IV 07/25/21 07:30 75 ml ONCE ONE Administration Ketorolac Tromethamine 30 mg 07/25/21 06:45 07/25/21 06:46 Ketorolac 30mg/Ml Vial IV 07/25/21 06:46 30 mg ONCE ONE Administration Ondansetron HCl 4 mg 07/25/21 06:45 07/25/21 06:46 Ondansetron 4mg/2ml Vial IV 07/25/21 06:46 4 mg ONCE ONE Administration Sodium Chloride 10 ml 07/25/21 07:29 07/25/21 07:30 Sodium Chloride 0.9% 10ml Syr (Rad Only) IV 07/25/21 07:30 10 ml
[2021-07-25 06:59] LABS: Appearance,Urine CLEAR (Clear); Bilirubin,Urine Negative (Negative); Blood, Urine Negative (Negative); Color,Urine YELLOW (Yellow); Glucose,Urine (UA) Negative (Negative); Ketones,Urine Negative (Negative); Leukocyte Esterase,Urine Negative (Negative); Nitrate,Urine Negative (Negative); Protein,Urine Negative (Negative)
[2021-07-25 07:13] LABS: NT Pro Brain Natriuretic Pep. 92.9 pg/mL (0-450)
[2021-07-25 07:14] LABS: C-Reactive Protein 4.5 mg/L (0-4)
[2021-07-25 07:15] LABS: Squamous Epithelial Cell,Urine Occasional #/hpf (0-5)
[2021-07-25 07:19] LABS: Troponin I < 0.01 ng/ml (0.00-0.034)
[2021-07-25 07:20] VITALS: BP 119/61; BP 122/68; BP 132/65; PULSE 59; PULSE 64; PULSE 68
[2021-07-25 07:22] LABS: T4 (Thyroxine) 12.3 ug/dl (5.53-11.0)
[2021-07-25 07:26] LABS: Anion Gap 10.4 mEq/L (5-15); Chloride 103 mmol/L (98-107)
--- NOTE | 2021-07-25 07:30 | PC.NURSE ---
ROCKY MAYER spoke with Dr. Skinner at this time
[2021-07-25 07:31] LABS: Coronavirus 19, PCR Not Detected (NotDetected); Influenza A, PCR Not Detected (NotDetected); Influenza B, PCR Not Detected (NotDetected)
[2021-07-25 07:36] LABS: Erythrocyte Sedimentation Rate 13 mm/hr (0-20); Thyroid Stimulating Hormone 0.86 uIU/mL (0.465-4.68)
[2021-07-25 08:53] LABS: Adenovirus F 40/41, stool Not Detected (NotDetected); Astrovirus Not Detected (NotDetected); Campylobacter Not Detected (NotDetected); Cryptosporidium Not Detected (NotDetected); Cyclospora Cayetanesis Not Detected (NotDetected); Entamoeba histolytica Not Detected (NotDetected); Enteroaggregative E coli Not Detected (NotDetected); Enteropathogenic E coli Not Detected (NotDetected); Enterotoxigenic E coli Not Detected (NotDetected); Giardia lamblia Not Detected (NotDetected); Norovirus Not Detected (NotDetected); Plesimonas Shigalloides, PCR Not Detected (NotDetected); Rotavirus A Not Detected (NotDetected); Salmonella, PCR Not Detected (NotDetected); Sapovirus Not Detected (NotDetected); Shiga-like toxin E coli Not Detected (NotDetected); Shigella Enterovasive E coli Not Detected (NotDetected); Vibrio Cholerae Not Detected (NotDetected); Vibrio, PCR Not Detected (NotDetected); Yersinia Entercolitica, PCR Not Detected (NotDetected)
[2021-07-25 10:00] VITALS: BP 130/74; PULSE 62; RESP 18; TEMP 36.9; O2SAT 94
[2021-07-25 10:54] LABS: Clostridium Difficile A/B, PCR Detected (NotDetected)
== END 2021-07-25 10:01 | disposition home or self-care (01) ==
PROVIDERS: Emergency Provider Emergency Medicine; PCP Family Medicine
DX: R53.1 Weakness (principal); Z20.822 Contact with and (suspected) exposure to COVID-19; F41.8 Other specified anxiety disorders; J45.909 Unspecified asthma, uncomplicated; E78.5 Hyperlipidemia, unspecified; Z87.442 Personal history of urinary calculi; R06.09 Other forms of dyspnea
CPT/HCPCS: 71045; 74177; 80053; 81001; 82150; 83605; 83690; 83880; 84436; 84443; 84484; 85025; 85651; 86140; 87040; 87506; 93005; 96365; 99284; J2405; Q9967; U0003

== ENCOUNTER → 2021-08-02 09:32 | Day surgery (SDC) | payer MEDICARE, SELFPAY ==
[2021-08-02 10:02] VITALS: BMI 24.8
--- NOTE | 2021-08-02 10:59 | P.PCN_ITS ---
Findings:: PROCEDURE: Upright Tilt Table Test REQUESTING PROVIDER: Monika Shi APRN PRIMARY CARE PROVIDER: Alberto Skinner MD INDICATION: Recurrent lightheadedness, dizziness and several falls BETA BLOCKERS: None PRE-TEST VITAL SIGNS (supine position): BP 141/83, HR 71 and regular, O2 sats 97% PROCEDURE SUMMARY: Patient was prepped per protocol, IV started, connected to heart, blood pressure and oxygen saturation monitors and safety straps applied. He was then tilted upright at 60 degrees for a total of 30 minutes. He denied any symptoms during the test with no dizziness, lightheadedness, syncope or near syncope. However, he did have a very abnormal drop in blood pressure. His BP gradually and steadily dropped from the pretest supine reading of 141/83 to a low of 86/56 after 30 minutes (test termination). BP and HR readings were as follows: * After 3 minutes upright: BP 122/69, HR 73 * After 5 minutes upright: BP 106/63, HR 76 * After 10 minutes upright: BP 105/61, HR 76 * After 15 minutes upright: BP 102/61, HR 78 * After 20 minutes upright: BP 97/60, HR 80 * After 25 minutes upright: BP 90/60, HR 81 * After 30 minutes upright, BP 86/56, HR 83 His heart rhythm was normal sinus throughout with an occasional, isolated PVC. Oxygen saturation remained at 96% during the test. CONCLUSIONS: Abnormal blood pressure response indicating postural/orthostatic hypotension. While the patient denied any symptoms during the test, it would be reasonable to think that his symptoms and falls could be due to an abnormal drop in BP when standing. I would also note this his BP was still dropping at the time the test was terminated, and may have gotten even lower if he had remained in the upright position. Also of note is that we tilted him at only 60 degrees (due to his advanced age and concerns of excessive fatigue from prolonged standing). If he was tilted closer to 90 degrees I suspect that his drop in BP would have been even worse.
[2021-08-02 12:45] LABS: Basophils % 0.7 % (0.1-2.0); Eosinophils # 0.2 K/mm3 (0.0-0.4); Hematocrit 45.8 % (42.0-52.0); Hemoglobin 14.6 g/dL (14.1-18.0); Lymphocytes # 1.1 K/mm3 (0.7-4.5); Lymphocytes % 19.3 % (10-50); Mean Corpuscular HGB Conc 31.9 g/dL (31.8-35.4); Mean Corpuscular Hemoglobin 30.5 pg (27.0-31.2); Mean Corpuscular Volume 95.7 fl (80-94); Mean Platelet Volume 9.4 fl (7.4-10.4); Monocytes # 0.4 K/mm3 (0.1-1.0); Monocytes % 6.9 % (1.7-9.3); Neutrophils # 3.9 K/mm3 (1.8-7.8); Platelet Count 249 K/mm3 (142-424); Red Blood Count 4.79 M/mm3 (4.60-6.20); Red Cell Distribution Width 13.7 % (11.5-17.5); White Blood Count 5.6 K/mm3 (4.8-10.8)
[2021-08-02 12:56] LABS: Alanine Aminotransferase 18 U/L (12-78); Albumin Level 3.7 g/dl (3.5-5.0); Albumin/Globulin Ratio 1.4 (1.1-1.8); Alkaline Phosphatase 58 U/L (38-126); Anion Gap 12.5 mEq/L (5-15); Aspartate Amino Transferase 33 U/L (17-59); Bilirubin,Total 0.6 mg/dl (0.2-1.3); Blood Urea Nitrogen 10 mg/dl (9-20); Calcium 8.9 mg/dl (8.4-10.2); Carbon Dioxide 26 mmol/L (22.0-30.0); Chloride 104 mmol/L (98-107); Creatinine Clearance Estimated 65 mL/min (50-200); Estimated Glomerular Filt Rate 92 ml/min (>60); GFR (African American) 111 ML/MIN (>60); Globulin 2.7 g/dL (1.3-3.2); Glucose 111 mg/dl (74-100); Potassium 3.5 mmoL/L (3.5-5.1); Sodium 139 mmol/L (136-145); Total Protein,Serum 6.4 g/dl (6.3-8.2)
== END ==
PROVIDERS: Family Medicine; PCP Family Medicine; Visit Provider Nurse Practitioner Family
DX: R29.6 Repeated falls (principal); G93.40 Encephalopathy, unspecified; R44.1 Visual hallucinations; R41.3 Other amnesia; R63.4 Abnormal weight loss; Z68.24 Body mass index [BMI] 24.0-24.9, adult
CPT/HCPCS: 80053; 85025; 93660

== ENCOUNTER → 2021-08-09 08:27 | Outpatient (CLI) | payer MEDICARE, SELFPAY ==
--- NOTE | 2021-08-09 08:33 | MR_ITS ---
PROCEDURE: MR HEAD/BRAIN WO CON CLINICAL INDICATION: encephalopathy Memory loss and dizziness COMPARISON: CT HEADWO CT head/brain wo con from 08/31/2018 TECHNIQUE: Routine multiplanar multi echo sequences are performed without gadolinium enhancement. FINDINGS: No midline shift, mass effect, intracranial hemorrhage, or hydrocephalus is evident. The cerebellopontine angles, cerebellum, and brainstem have an unremarkable appearance. Nonspecific T2 white matter hyperintensities are present. No evidence of acute infarction. Vascular ectasia noted of the cavernous portion of the carotid arteries. There is mild generalized atrophy. The pituitary, optic chiasm, corpus callosum, and craniocervical junction have an unremarkable appearance. No mastoid effusion or sinus air-fluid level. There is mild mucosal thickening of the sphenoid sinus on the right medially. Unremarkable appearing orbits. IMPRESSION: No acute intracranial findings. Mild generalized atrophy with nonspecific periventricular T2 white matter hyperintensities most commonly seen with ischemic gliotic changes from microangiopathy Dictated by: Cooper Alonso MD 08/10/2021 07:43 Cooper Alonso MD in [place] 08/10/2021 07:43
== END ==
PROVIDERS: PCP Family Medicine; Visit Provider Nurse Practitioner Family
DX: G47.8 Other sleep disorders (principal); G93.40 Encephalopathy, unspecified; R29.6 Repeated falls; R41.3 Other amnesia; R44.1 Visual hallucinations; R63.4 Abnormal weight loss; Z68.24 Body mass index [BMI] 24.0-24.9, adult
CPT/HCPCS: 70551; 95816; 95819

== ENCOUNTER → 2021-08-15 12:01 | Outpatient (CLI) | payer MEDICARE, SELFPAY ==
[2021-08-15 13:53] LABS: Thyroid Stimulating Hormone 0.55 uIU/mL (0.465-4.68)
[2021-08-15 14:28] LABS: Vitamin B12 506 pg/mL (239-931)
[2021-08-15 14:29] LABS: Folate 5.26 ng/mL
[2021-08-16 13:15] LABS: Rapid Plasma Reagin Ab Titer Non Reactive (NonRea<1:1)
[2021-08-16 21:52] LABS: Anti-Centromere B Antibodies <0.2 AI (0.0-0.9); Anti-DNA (DS) Ab Qn <1 IU/mL (0-9); Anti-Jo-1 <0.2 AI (0.0-0.9); Anti-Smith Antibody <0.2 AI (0.0-0.9); Antichromatin Antibodies <0.2 AI (0.0-0.9); Antiscleroderma-70 Antibodies <0.2 AI (0.0-0.9); RNP Antibodies 0.3 AI (0.0-0.9); Sjogren's Anti-SS-A <0.2 AI (0.0-0.9); Sjogren's Anti-SS-B <0.2 AI (0.0-0.9)
== END ==
PROVIDERS: Visit Provider Nurse Practitioner Family
DX: G47.8 Other sleep disorders (principal); G93.40 Encephalopathy, unspecified; R29.6 Repeated falls; R41.3 Other amnesia; R44.1 Visual hallucinations; R63.4 Abnormal weight loss
CPT/HCPCS: 36415; 82607; 82746; 84443; 86225; 86235; 86592

== ENCOUNTER 2021-12-01 11:57 | Emergency (ER) | payer MEDICARE, SELFPAY ==
[2021-12-01 12:22] VITALS: BP 104/65; PULSE 74; RESP 20; TEMP 36.9; O2SAT 97; BMI 23.7
[2021-12-01 12:37] LABS: Basophils % 1.5 % (0.1-2.0); Eosinophils # 0.1 K/mm3 (0.0-0.4); Eosinophils % 2.4 % (0.1-12.0); Hematocrit 47.9 % (42.0-52.0); Lymphocytes # 1.1 K/mm3 (0.7-4.5); Lymphocytes % 43.1 % (10-50); Mean Corpuscular HGB Conc 31.2 g/dL (31.8-35.4); Mean Corpuscular Hemoglobin 30.5 pg (27.0-31.2); Mean Corpuscular Volume 97.7 fl (80-94); Mean Platelet Volume 9.8 fl (7.4-10.4); Monocytes # 0.2 K/mm3 (0.1-1.0); Monocytes % 9.4 % (1.7-9.3); Neutrophils # 1.1 K/mm3 (1.8-7.8); Neutrophils % 43.6 % (37.0-80.0); Platelet Count 179 K/mm3 (142-424); Red Cell Distribution Width 13.7 % (11.5-17.5); White Blood Count 2.5 K/mm3 (4.8-10.8)
--- NOTE | 2021-12-01 12:44 | CT_ITS ---
PROCEDURE INFORMATION: Exam: CT Head Without Contrast Exam date and time: 12/01/2021 12:44 PM Age: 86 years old Clinical indication: Altered mental status/memory loss and walking, difficulty and weakness, extremity; Bilateral; Confusion or disorientation; Additional info: AMS, weakness TECHNIQUE: Imaging protocol: Computed tomography of the head without contrast. Radiation optimization: All CT scans at this facility use at least one of these dose optimization techniques: automated exposure control; mA and/or kV adjustment per patient size (includes targeted exams where dose is matched to clinical indication); or iterative reconstruction. COMPARISON: MR HEAD/BRAIN WO CON 08/09/2021 8:47 AM FINDINGS: Brain: There is moderate atrophy and chronic white matter microangiopathic changes. Cerebral ventricles: There is compensatory ventricular dilation. Paranasal sinuses: Visualized sinuses are unremarkable. No fluid levels. Mastoid air cells: Visualized mastoid air cells are well aerated. Vasculature: The vasculature demonstrates diffuse moderate atherosclerotic calcification. Bones/joints: Unremarkable. No acute fracture. Soft tissues: Unremarkable. IMPRESSION: No acute intracranial process is identified. ASSESSMENT: ASPECTS ([place] Stroke Program Early CT Score) is 10.
[2021-12-01 12:45] LABS: Microscopic, Urine URINE MICROSCOPIC (MICROSCOPIC)
[2021-12-01 12:45] LABS: Influenza A, PCR Not Detected (NotDetected); Influenza B, PCR Not Detected (NotDetected)
--- NOTE | 2021-12-01 12:45 | HMH.EDGENADL ---
ED Disposition Clinical Impression: COVID-19, Poor balance Disposition: Home, Self-Care Condition on Discharge: Fair Instructions: How to Prevent Falls, DI for COVID-19 (Suspected or Confirmed ), Preventing the Spread of Coronavirus Discharge Instructions Additional Instructions: You have been evaluated for weakness and poor balance. Diagnosed with COVID-19. It is very important that you monitor your symptoms at home. Take Tylenol for aches, pains, fever. Stay hydrated. Follow-up with your primary care doctor. Return to the emergency department at once for any new or worsening symptoms, difficulty breathing, numbness, weakness, tingling in your arms or legs or any other concerns. Referrals: Alberto Skinenr MD [Primary Care Provider] - Time of Disposition: 14:56 - Critical Care Critical Care Time: No Attestation: On 12/01/21, the high probability of a clinically significant, sudden or life threatening deterioration of the following system(s) required my full and direct attention, intervention and personal management. The time I documented below is in addition to time spent performing reported procedures but includes the following listed in this critical care notation. Medical Decision Making - Medical Records Medical records reviewed: Yes: I reviewed the patient's medical records. - Viraj Inquiry Pt receiving controlled substance: No Vital Signs: 12/01/21 12:22 12/01/21 13:35 Temperature 98.5 F Temperature Source Oral Pulse Rate 66 Pulse Rate [Left Radial] 74 Respiratory Rate 20 18 Blood Pressure 124/69 Blood Pressure [Right Arm] 104/65 L Blood Pressure Mean 85 Blood Pressure Mean [Right Arm] 78 Blood Pressure Source [Right Arm] Automatic Cuff Blood Pressure Position [Right Arm] Sitting 02 Sat by Pulse Oximetry 97 98 Oxygen Delivery Method Room Air - Lab Data Lab Results 12/01/21 12:25: WBC 2.5 L, RBC 4.90, Hgb 15.0, Hct 47.9, MCV 97.7 H, MCH 30.5, MCHC 31.2 L, RDW 13.7, Plt Count 179, MPV 9.8, Neut % (Auto) 43.6, Lymph % (Auto) 43.1, [place] % (Auto) 9.4 H, Eos % (Auto) 2.4, Baso % (Auto) 1.5, Neut # (Auto) 1.1 L, Lymph # (Auto) 1.1, [place] # (Auto) 0.2, Eos # (Auto) 0.1, Baso # (Auto) 0.0 12/01/21 12:25: Sodium 138, Potassium 4.0, Chloride 106, Carbon Dioxide 27, Anion Gap 9.0, BUN 11, Creatinine 0.90, Estimated Creat Clear 62, Estimated GFR 80, Est GFR ( Amer) 97, Glucose 102 H, Calcium 8.9, Total Bilirubin 0.4, AST 30, ALT 16, Alkaline Phosphatase 52, Total Protein 6.8, Albumin 4.1, Globulin 2.7, Albumin/Globulin Ratio 1.5 12/01/21 12:25: Troponin I < 0.01 12/01/21 12:25: SARS-CoV-2 (PCR) Detected A, Influenza A Untype (PCR) Not detected, Influenza Type B (PCR) Not detected 12/01/21 12:40: Urine Color Yellow, Urine Appearance Clear, Urine pH 5.5, Ur Specific [place] 1.025, Urine Protein Negative, Urine Glucose (UA) Negative, Urine Ketones Negative, Urine Blood Negative, Urine Nitrate Negative, Urine Bilirubin Negative, Urine Urobilinogen 1.0, Ur Leukocyte Esterase Negative, Urine RBC None, Urine WBC None, Ur Squamous Epith Cells Occasional, Urine Bacteria None Result diagrams: 12/01/21 12:25 12/01/21 12:25 Orders (Tests/Meds): ED MEDICATIONS Discontinued Medications Generic Name Dose Route Start Last Admin Trade Name Freq PRN Reason Stop Dose Admin Sodium Chloride 1,000 mls @ 999 mls/hr 12/01/21 13:00 12/01/21 12:57 Sod Chlor 0.9% 1000ml Bag IV 12/01/21 14:00 999 mls/hr .Q1H1M DEN Administration ORDERS Category Date Time Status Troponin I Q3H Lab 12/01/21 15:45 Ordered Troponin I Q3H Lab 12/01/21 18:45 Ordered ECG Request by /Nse Stat Y 12/01/21 12:41 Ordered - CT Data CT Scan: Head Time Received: 14:[address] Reviewed: Yes: I have reviewed the patient's CT results, I have viewed the radiologist's interpretation Preliminary Findings: Normal/NAD Findings Narrative: IMPRESSION: No acute intracranial process is identified. Medical Decision
[2021-12-01 12:46] LABS: Alanine Aminotransferase 16 U/L (12-78); Albumin Level 4.1 g/dl (3.5-5.0); Albumin/Globulin Ratio 1.5 (1.1-1.8); Alkaline Phosphatase 52 U/L (38-126); Aspartate Amino Transferase 30 U/L (17-59); Bilirubin,Total 0.4 mg/dl (0.2-1.3); Blood Urea Nitrogen 11 mg/dl (9-20); Calcium 8.9 mg/dl (8.4-10.2); Carbon Dioxide 27 mmol/L (22.0-30.0); Chloride 106 mmol/L (98-107); Creatinine Clearance Estimated 62 mL/min (50-200); Estimated Glomerular Filt Rate 80 ml/min (>60); GFR (African American) 97 ML/MIN (>60); Globulin 2.7 g/dL (1.3-3.2); Glucose 102 mg/dl (74-100); Sodium 138 mmol/L (136-145); Total Protein,Serum 6.8 g/dl (6.3-8.2)
[2021-12-01 12:52] LABS: Appearance,Urine CLEAR (Clear); Bilirubin,Urine Negative (Negative); Blood, Urine Negative (Negative); Color,Urine YELLOW (Yellow); Glucose,Urine (UA) Negative (Negative); Ketones,Urine Negative (Negative); Leukocyte Esterase,Urine Negative (Negative); Nitrate,Urine Negative (Negative); PH,Urine 5.5 (5.0-8.5); Protein,Urine Negative (Negative); Specific Gravity, Urine 1.025 (1.005-1.030)
--- NOTE | 2021-12-01 12:55 | ECG_ITS ---
APPROVED REPORT Exam: Resting ECG HR:62 bpm ECG Measurements Heart Rate 62 AXES TX 158 P 50 QRSd 94 QRS 49 QT 450 T 60 QTc 456 Conclusion Normal sinus rhythm Normal ECG Electronically signed by : Orlin Villarreal MD 12/02/2021 09:00:23
[2021-12-01 13:02] LABS: Troponin I < 0.01 ng/ml (0.00-0.034)
[2021-12-01 13:26] LABS: Coronavirus 19, PCR Detected (NotDetected)
[2021-12-01 13:32] LABS: Squamous Epithelial Cell,Urine Occasional #/hpf (0-5)
[2021-12-01 13:35] VITALS: BP 124/69; PULSE 66; RESP 18; O2SAT 98
[2021-12-01 14:01] VITALS: BP 136/72; PULSE 58; RESP 18; O2SAT 96
[2021-12-01 14:30] VITALS: BP 126/78; PULSE 58; RESP 18; O2SAT 97
[2021-12-01 15:01] VITALS: BP 155/83; PULSE 62; RESP 18; O2SAT 98
[2021-12-01 15:22] VITALS: BP 155/83; PULSE 62; RESP 18; TEMP 36.9; O2SAT 98
== END 2021-12-01 15:23 | disposition home or self-care (01) ==
PROVIDERS: Emergency Provider Emergency Medicine; PCP Family Medicine
DX: U07.1 COVID-19 (principal); R53.83 Other fatigue; R65.10 Systemic inflammatory response syndrome (SIRS) of non-infectious origin without acute organ dysfunction
CPT/HCPCS: 70450; 80053; 81001; 84484; 85025; 93005; 96365; 99283; C9803; U0003; U0005

== ENCOUNTER → 2022-07-03 06:00 | Outpatient (CLI) | payer MEDICARE, SELFPAY ==
[2022-07-03 21:58] LABS: Basophils % 0.9 % (0.1-2.0); Eosinophils # 0.1 K/mm3 (0.0-0.4); Hematocrit 49.1 % (42.0-52.0); Hemoglobin 15.3 g/dL (14.1-18.0); Mean Corpuscular HGB Conc 31.1 g/dL (31.8-35.4); Mean Corpuscular Volume 99.7 fl (80-94); Mean Platelet Volume 11.2 fl (7.4-10.4); Monocytes # 0.4 K/mm3 (0.1-1.0); Monocytes % 9.7 % (1.7-9.3); Neutrophils # 2.4 K/mm3 (1.8-7.8); Neutrophils % 62.3 % (37.0-80.0); Platelet Count 173 K/mm3 (142-424); Red Blood Count 4.92 M/mm3 (4.60-6.20); Red Cell Distribution Width 13.5 % (11.5-17.5); White Blood Count 3.9 K/mm3 (4.8-10.8)
[2022-07-03 21:59] LABS: Alanine Aminotransferase 7 U/L (12-78); Albumin Level 3.8 g/dl (3.5-5.0); Albumin/Globulin Ratio 1.5 (1.1-1.8); Alkaline Phosphatase 67 U/L (38-126); Anion Gap 8.1 mEq/L (5-15); Aspartate Amino Transferase 22 U/L (17-59); Bilirubin,Total 0.4 mg/dl (0.2-1.3); Blood Urea Nitrogen 13 mg/dl (9-20); Calcium 9.1 mg/dl (8.4-10.2); Carbon Dioxide 28 mmol/L (22.0-30.0); Chloride 109 mmol/L (98-107); Estimated Glomerular Filt Rate 80 ml/min (>60); GFR (African American) 97 ML/MIN (>60); Globulin 2.5 g/dL (1.3-3.2); Glucose 98 mg/dl (74-100); Magnesium 1.8 mg/dl (1.6-2.3); Phosphorous 3.4 mg/dl (2.5-4.5); Potassium 4.1 mmoL/L (3.5-5.1); Sodium 141 mmol/L (136-145); Total Protein,Serum 6.3 g/dl (6.3-8.2)
[2022-07-03 22:15] LABS: 25-OH Vitamin D, Total 74.9 ng/mL (30-100)
[2022-07-03 22:30] LABS: Thyroid Stimulating Hormone 0.79 uIU/mL (0.465-4.68)
[2022-07-03 22:49] LABS: Vitamin B12 396 pg/mL (239-931)
== END ==
PROVIDERS: PCP Family Medicine; Visit Provider Family Medicine
DX: E55.9 Vitamin D deficiency, unspecified (principal); N18.30 Chronic kidney disease, stage 3 unspecified; R42 Dizziness and giddiness; R53.1 Weakness; R06.00 Dyspnea, unspecified
CPT/HCPCS: 80053; 82306; 82607; 83735; 84100; 84443; 85025

== ENCOUNTER → 2022-08-28 10:45 | Outpatient (CLI) | payer MEDICARE, SELFPAY ==
[2022-08-28 19:58] LABS: Alanine Aminotransferase 7 U/L (12-78); Albumin Level 3.8 g/dl (3.5-5.0); Albumin/Globulin Ratio 1.5 (1.1-1.8); Alkaline Phosphatase 71 U/L (38-126); Amylase 42 U/L (30-110); Anion Gap 13.6 mEq/L (5-15); Aspartate Amino Transferase 23 U/L (17-59); Bilirubin,Total 0.8 mg/dl (0.2-1.3); Blood Urea Nitrogen 11 mg/dl (9-20); Calcium 8.9 mg/dl (8.4-10.2); Carbon Dioxide 26 mmol/L (22.0-30.0); Chloride 104 mmol/L (98-107); Estimated Glomerular Filt Rate 92 ml/min (>60); GFR (African American) 111 ML/MIN (>60); Globulin 2.6 g/dL (1.3-3.2); Glucose 92 mg/dl (74-100); Lipase 42 U/L (23-300); Potassium 3.6 mmoL/L (3.5-5.1); Sodium 140 mmol/L (136-145); Total Protein,Serum 6.4 g/dl (6.3-8.2)
[2022-08-28 20:33] LABS: Basophils % 0.6 % (0.1-2.0); Eosinophils # 0.1 K/mm3 (0.0-0.4); Eosinophils % 1.2 % (0.1-12.0); Hematocrit 47.3 % (42.0-52.0); Lymphocytes % 20.7 % (10-50); Mean Corpuscular HGB Conc 31.8 g/dL (31.8-35.4); Mean Corpuscular Hemoglobin 31.1 pg (27.0-31.2); Mean Corpuscular Volume 97.9 fl (80-94); Mean Platelet Volume 11.6 fl (7.4-10.4); Monocytes # 0.3 K/mm3 (0.1-1.0); Neutrophils # 3.3 K/mm3 (1.8-7.8); Neutrophils % 70.4 % (37.0-80.0); Platelet Count 190 K/mm3 (142-424); Red Blood Count 4.84 M/mm3 (4.60-6.20); Red Cell Distribution Width 13.6 % (11.5-17.5); White Blood Count 4.7 K/mm3 (4.8-10.8)
== END ==
PROVIDERS: PCP Family Medicine; Visit Provider Family Medicine
DX: R10.11 Right upper quadrant pain (principal); I10 Essential (primary) hypertension
CPT/HCPCS: 80053; 82150; 83690; 85025

== ENCOUNTER → 2022-09-09 09:37 | Outpatient (CLI) | payer MEDICARE, SELFPAY ==
--- NOTE | 2022-09-09 09:37 | US_ITS ---
FINAL REPORT CLINICAL HISTORY: RUQ abd pain FINDINGS: Sonographic images of the right upper quadrant were obtained. The pancreas is partially obscured.The liver has an unremarkable appearance. The portal vein is dilated up to 14 mm of uncertain significance. There is nonspecific gallbladder wall thickening up to 9 mm. There is no evidence of biliary ductal dilatation.The common duct measures 3 mm. The right kidney measures 11.4 cm in length. There is a small right renal cyst measuring 1.6 cm. IMPRESSION: Nonspecific gallbladder wall thickening. 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 Right renal cyst. Reviewed, Interpreted and Dictated by Timothy Russo III, MD Transcribed by Alis Hung Authenticated and [facility]
[2022-09-09 11:56] LABS: Gamma Glutamyl Transpeptidase 14 U/L (15-73)
[2022-09-09 13:03] LABS: Vitamin B12 366 pg/mL (239-931)
[2022-09-09 13:06] LABS: Folate 5.05 ng/mL
== END ==
PROVIDERS: Specialist; PCP Family Medicine; Visit Provider Family Medicine
DX: R10.11 Right upper quadrant pain (principal); E78.5 Hyperlipidemia, unspecified
CPT/HCPCS: 36415; 76705; 82607; 82746; 82977

== ENCOUNTER 2022-09-15 21:33 | Observation (INO) | payer MEDICARE, SELFPAY ==
[2022-09-15 21:35] VITALS: BP 148/88; PULSE 83; RESP 16; TEMP 36.6; O2SAT 96; BMI 25.7
--- NOTE | 2022-09-15 21:46 | XR_ITS ---
PROCEDURE INFORMATION: Exam: XR Left Knee Exam date and time: 09/15/2022 10:02 PM Age: 87 years old Clinical indication: Injury or trauma; Fall; Blunt trauma; Knee; Left; Additional info: Fall, pain TECHNIQUE: Imaging protocol: Radiologic exam of the Left knee. Views: 3 views. COMPARISON: CA VENOUS DOPPLER LE LT 07/17/2021 1:14 PM FINDINGS: Bones/joints: Advanced osteoarthritis without fracture or subluxation. Chronic appearing loose bodies. Soft tissues: Normal. Vasculature: Dense atherosclerosis. Other findings: Moderate effusion. IMPRESSION: 1. Advanced osteoarthritis without fracture or subluxation. 2. Moderate effusion.
--- NOTE | 2022-09-15 21:46 | CT_ITS ---
PROCEDURE INFORMATION: Exam: CT Head Without Contrast Exam date and time: 09/15/2022 10:16 PM Age: 87 years old Clinical indication: Injury or trauma; Fall; Blunt trauma (contusions or hematomas); Without loss of consciousness TECHNIQUE: Imaging protocol: Computed tomography of the head without contrast. Radiation optimization: All CT scans at this facility use at least one of these dose optimization techniques: automated exposure control; mA and/or kV adjustment per patient size (includes targeted exams where dose is matched to clinical indication); or iterative reconstruction. COMPARISON: CT HEAD/BRAIN WO CON 12/01/2021 1:01 PM FINDINGS: Brain: No intracranial bleed, suspicious mass, or mass effect. Ventricles appear unremarkable. There is low attenuation change in the white matter most consistent with chronic age related small vessel ischemic change. No acute territorial infarction is seen. These can be initially occult on head CT. Cerebral ventricles: See Brain finding. Paranasal sinuses: Visualized sinuses are unremarkable. No fluid levels. Mastoid air cells: Visualized mastoid air cells are well aerated. Bones/joints: Unremarkable. No acute fracture. Soft tissues: Unremarkable. IMPRESSION: 1. No intracranial bleed, suspicious mass, or mass effect. Ventricles appear unremarkable. 2. There is low attenuation change in the white matter most consistent with chronic age related small vessel ischemic change. No acute territorial infarction is seen. These can be initially occult on head CT.
--- NOTE | 2022-09-15 21:46 | XR_ITS ---
PROCEDURE INFORMATION: Exam: XR Pelvis Exam date and time: 09/15/2022 9:58 PM Age: 87 years old Clinical indication: Injury or trauma; Fall; Blunt trauma (contusions or hematomas); Left; Pelvic region; Additional info: Fall pain TECHNIQUE: Imaging protocol: Radiologic exam of the pelvis. Views: 1 or 2 view. COMPARISON: CT ABDOMEN PELVIS W CON 07/25/2021 7:15 AM FINDINGS: Bones/joints: Moderate degenerative changes with no fracture or focal bony lesion seen. Nondisplaced fractures in osteopenic patients can be initially occult on xray. Follow up as clinically indicated. Soft tissues: Unremarkable. IMPRESSION: Moderate degenerative changes with no fracture or focal bony lesion seen. Nondisplaced fractures in osteopenic patients can be initially occult on xray. Follow up as clinically indicated.
--- NOTE | 2022-09-15 21:46 | XR_ITS ---
PROCEDURE INFORMATION: Exam: XR Lumbosacral Spine Exam date and time: 09/15/2022 10:01 PM Age: 87 years old Clinical indication: Injury or trauma; Fall; Blunt trauma (contusions or hematomas) TECHNIQUE: Imaging protocol: Radiologic exam of the lumbosacral spine. Views: 2 or 3 views. COMPARISON: CR LS5 LUMBAR SPINE 5 VIEWS 12/27/2016 9:06 AM FINDINGS: Bones/joints: No visualized acute fracture. Advanced spondylosis L4-L5 and L3-L4 with mild degenerative change elsewhere. Soft tissues: Unremarkable. IMPRESSION: No visualized acute fracture.
--- NOTE | 2022-09-15 21:46 | XR_ITS ---
PROCEDURE INFORMATION: Exam: XR Chest Exam date and time: 09/15/2022 10:00 PM Age: 87 years old Clinical indication: Injury or trauma; Fall; Blunt trauma (contusions or hematomas) TECHNIQUE: Imaging protocol: Radiologic exam of the chest. Views: 1 view. COMPARISON: CR XR CHEST PORTABLE 07/25/2021 7:33 AM FINDINGS: Lungs: No lobar consolidation, pleural effusion or pulmonary edema. Pleural spaces: See Lungs finding. Heart/Mediastinum: Unremarkable. No cardiomegaly. Vasculature: Ectatic thoracic aorta. Bones/joints: Unremarkable. IMPRESSION: No lobar consolidation, pleural effusion or pulmonary edema.
--- NOTE | 2022-09-15 21:58 | HMH.EDGENADL ---
Discharge Plan Disposition Patient Disposition: Admitted as Observation Condition: Fair Clinical Impressions Clinical Impression: Fall, Gait instability, Left knee sprain Discharge ED Provider: Merced Tapia General Adult HPI General Chief complaint: Fall Stated complaint: ao 09/15@2030 fell injured legs,arm Time Seen by Provider: 09/15/22 21:46 Mode of Arrival: Wheelchair Source of Information: Patient Limitations: No Limitations Description of Symptoms (Recalled from ER Triage Doc. by RN): pt states was on the porch and losted footing and fell on porch. pt c/p lt knee, neck, and lower back pain History of Present Illness HPI narrative: 87-year-old male presenting to the emergency department with head injury, left knee pain after a fall. Incident happened just prior to arrival. He was on his porch when he lost his balance and fell. He landed in [place] bushes. Had pain in his left knee, and abrasion. Also pain in his hands from scratches. He is not sure if he struck his head. Was able to get back into the house and call his son. When son tried to walk him to the car he had multiple other locations of pain, low back, knee, hands, head. Denies loss of consciousness. Does not take blood thinning medicines. Denies chest pain, abdominal pain, nausea, vomiting, vision changes, numbness, weakness, tingling. He does not think he passed out. No preceding chest pain, palpitations, dizzy Related Data Home Medications Medication Instructions Recorded Confirmed ergocalciferol (vitamin D2) 1,250 1 tab PO DAILY Supplement 02/09/20 09/15/22 mcg (50,000 unit) capsule fenofibrate micronized 134 mg 1 tab PO DAILY Cholesterol 02/09/20 09/15/22 capsule latanoprost 0.005 % eye drops 1 drops Eye-Both HS Glaucoma 02/09/20 09/15/22 ramipril 10 mg capsule 20 mg PO DAILY UNKNOWN 02/09/20 09/15/22 tamsulosin 0.4 mg capsule 1 tab PO DAILY prostate 02/09/20 09/15/22 simvastatin 40 mg tablet 40 mg PO DAILY Cholesterol 07/24/21 09/15/22 melatonin 10 mg capsule 10 mg PO HS sleep 02/26/22 09/15/22 psyllium husk 0.4 gram capsule 0.4 g PO DAILY . 02/26/22 09/15/22 (Metamucil) oxybutynin chloride 5 mg 5 mg PO DAILY bladder 09/05/22 09/15/22 tablet,extended release 24 hr carbidopa 25 mg-levodopa 100 mg See Rx Instructions PO TID memory 09/15/22 09/15/22 tablet rivastigmine tartrate 1.5 mg 1.5 mg PO BID . 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 Vitamin D deficiency Surgical History History of hernia repair History of knee surgery Family History Other Cancer Social History (Updated 09/16/22 @ 01:22 by Tiffanie Velazquez RN) Smoking Status: Never smoker alcohol intake: current substance use type: denies use current occupational status: retired Travel in the last 8 weeks: None household members: none housing: house caffeine: Yes ROS Obtained: Yes All systems reviewed & no additional complaints except as documented Constitutional Constitutional: Denies fever(s), Reports headache(s) and Denies weakness Eyes Eyes: Denies blurry vision and Denies loss of vision ENT Ears, Nose, Mouth, and Throat: Denies dizziness, Denies facial pain, Reports headache(s) and Denies neck pain Cardiovascular Cardiovascular: Denies chest pain, Denies dyspnea and Denies palpitations Respira
[2022-09-15 22:07] LABS: Microscopic, Urine URINE MICROSCOPIC (MICROSCOPIC)
[2022-09-15 22:09] LABS: Appearance,Urine CLEAR (Clear); Bilirubin,Urine Negative (Negative); Blood, Urine Negative (Negative); Color,Urine YELLOW (Yellow); Glucose,Urine (UA) Negative (Negative); Ketones,Urine Negative (Negative); Leukocyte Esterase,Urine Negative (Negative); Nitrate,Urine Negative (Negative); Protein,Urine Negative (Negative); Specific Gravity, Urine 1.015 (1.005-1.030); Urobilinogen,Urine 0.2 EU/dl (0.2)
[2022-09-15 22:19] LABS: WBC,Urine Occasional #/hpf (0-3)
[2022-09-15 22:20] LABS: Bacteria,Urine Trace /lpf; Mucus,Urine 1+ /lpf; Squamous Epithelial Cell,Urine Occasional #/hpf (0-5)
[2022-09-15 22:32] VITALS: BP 138/80; PULSE 73; O2SAT 96
--- NOTE | 2022-09-15 22:32 | PC.NURSE ---
Pt back in his room from [facility]. No needs or complaints voiced.
[2022-09-15 22:59] LABS: Chloride 103 mmol/L (98-107); Potassium 3.8 mmoL/L (3.5-5.1); Sodium 140 mmol/L (136-145)
[2022-09-15 23:00] VITALS: BP 127/72; PULSE 70; O2SAT 95
[2022-09-15 23:01] LABS: Blood Urea Nitrogen 13 mg/dl (9-20); Creatinine Clearance Estimated 66 mL/min (50-200); Estimated Glomerular Filt Rate 71 ml/min (>60); GFR (African American) 86 ML/MIN (>60)
[2022-09-15 23:02] LABS: Alanine Aminotransferase 10 U/L (12-78); Albumin Level 3.8 g/dl (3.5-5.0); Albumin/Globulin Ratio 1.5 (1.1-1.8); Alkaline Phosphatase 61 U/L (38-126); Anion Gap 11.8 mEq/L (5-15); Aspartate Amino Transferase 23 U/L (17-59); Bilirubin,Total 0.5 mg/dl (0.2-1.3); Calcium 8.9 mg/dl (8.4-10.2); Carbon Dioxide 29 mmol/L (22.0-30.0); Globulin 2.5 g/dL (1.3-3.2); Glucose 117 mg/dl (74-100); Total Protein,Serum 6.3 g/dl (6.3-8.2)
[2022-09-15 23:05] LABS: Basophils # 0.1 K/mm3 (0-0.2); Basophils % 1.9 % (0.1-2.0); Eosinophils # 0.1 K/mm3 (0.0-0.4); Eosinophils % 2.8 % (0.1-12.0); Hematocrit 44.9 % (42.0-52.0); Lymphocytes # 0.8 K/mm3 (0.7-4.5); Lymphocytes % 16.5 % (10-50); Mean Corpuscular HGB Conc 31.3 g/dL (31.8-35.4); Mean Corpuscular Hemoglobin 30.7 pg (27.0-31.2); Mean Corpuscular Volume 98.1 fl (80-94); Mean Platelet Volume 9.5 fl (7.4-10.4); Monocytes # 0.4 K/mm3 (0.1-1.0); Monocytes % 7.5 % (1.7-9.3); Neutrophils # 3.5 K/mm3 (1.8-7.8); Neutrophils % 71.2 % (37.0-80.0); Platelet Count 182 K/mm3 (142-424); Red Blood Count 4.58 M/mm3 (4.60-6.20); Red Cell Distribution Width 13.7 % (11.5-17.5); White Blood Count 4.9 K/mm3 (4.8-10.8)
--- NOTE | 2022-09-15 23:28 | PC.NURSE ---
Pt ambulatory to bathroom and back to bed
--- NOTE | 2022-09-15 23:52 | PC.NURSE ---
Dr. Phil hobson
--- NOTE | 2022-09-15 23:56 | PC.NURSE ---
Dr. Tapia s/w Dr. Villarreal for admission, agrees. House notified for bed assignment
[2022-09-16] LABS: Coronavirus 19, PCR Not Detected (NotDetected); Influenza A, PCR Not Detected (NotDetected); Influenza B, PCR Not Detected (NotDetected)
--- NOTE | 2022-09-16 00:07 | PC.NURSE ---
Pt abrasions cleaned with sterile water and hibiclens, and covered with non-adherent dressing and tegaderm
[2022-09-16 00:17] VITALS: BP 111/72; PULSE 71; RESP 18; TEMP 36.6; O2SAT 99
--- NOTE | 2022-09-16 00:21 | PC.NURSE ---
Called repot to [facility] on 2nd floor, still awaiting for covid results. Will call when complete
--- NOTE | 2022-09-16 01:08 | PC.NURSE ---
PT ARRIVED TO FLOOR VIA WHEEL CHAIR AT THIS TIME
[2022-09-16 01:20] VITALS: BMI 25.1
[2022-09-16 01:21] VITALS: BP 147/78; PULSE 63; RESP 18; TEMP 36.4; O2SAT 97
[2022-09-16 03:58] VITALS: BP 159/93; PULSE 62; RESP 18; TEMP 36.4; O2SAT 99
--- NOTE | 2022-09-16 04:55 | PC.NURSE ---
pt admitted this shift. A&OX4. pt has scattered abrasions related to a fall, dressings in place cdi. sukhwinder wrap on left knee. ambulates with assistance. no c/o pain. CB in reach.
--- NOTE | 2022-09-16 07:43 | HMH.PHAINT1 ---
Pharmacy Intervention Comments: Home medication reconciliation completed using outpatient pharmacy fill history.
[2022-09-16 08:00] VITALS: BP 121/73; PULSE 70; RESP 16; TEMP 36.4; O2SAT 96
--- NOTE | 2022-09-16 08:39 | HMH.PTEV ---
Physical Therapy Evaluation Rehab PT IP Evaluation Start: 09/15/22 23:59 Freq: ONCE Status: Active Protocol: Document 09/16/22 08:34 BRYN (Rec: 09/16/22 08:38 BRYN [id number]) Subjective/History History History This is the initial IP PT evaluation for Saul Kelsey. Pt is an 87 y/o male admitted to [facility] thru ED for observation s/p fall at home. Pt lives alone w/ son checking in on him. Subjective Subjective Pt reports he uses [facility] as AD at home. Rehab PT IP Eval Objective Appearance Patient Behavior Appropriate,Cooperative Patient Orientation Place,Name,Birthday Difficulty following instructions mild Speech Pattern Appropriate Ambulation Patient Able to Ambulate Yes Ambulation Observation IP General Gait Pattern Observation Shuffling Step Ambulation Distance (feet) 55 Ambulation Assistive Device None Ambulation Ability Contact Guard/Hand Hold Balance Ability to Arise Able, uses arms to help Sitting Balance Steady, safe Standing Balance Steady, wide stance Dynamic Sitting Balance Ability Good Dynamic Standing Balance Ability Fair Transfers Bed Transfer Ability Supervision/Stand by,Contact Guard/Hand Hold Chair Transfer Ability Supervision/Stand by,Contact Guard/Hand Hold Sit to Stand Bed Transfer Ability Supervision/Stand by,Contact Guard/Hand Hold Sit to Stand Chair Transfer Ability Supervision/Stand by,Contact Guard/Hand Hold Rehab PT IP prob,goals,plan Problems Date of Evaluation: 09/16/22 PT IP Problems Bed Mobility,Transfers,Gait, Balance,Self care,Safety Rehab Potential Rehab Potential Good Equipment Needs Assistive Devices Rolling / Wheeled Walker Plan PT Intervention Plan Transfers,Gait,Balance,Self care,Safety,Therapeutic Exercise PT Plan Frequency BID Duration LOS Discharge Goals Bed Transfer Ability Supervision/Stand by,Contact Guard/Hand Hold Sit to Stand Chair Transfer Ability Supervision/Stand by,Contact Guard/Hand Hold Ambulation Assistive Device None Ambulation Distance (feet) 55 Discharge Plan PT Discharge Plan Pt moreno benefit from skilled the
--- NOTE | 2022-09-16 08:52 | EXP.HPDC ---
General Admission date:: 09/16/22 Discharge date: 09/16/22 *Admission Date: 09/16/22 *Chief complaint: Fall with knee pain *History of present illness: History of Present Illness HPI narrative: 87-year-old male presenting to the emergency department with head injury, left knee pain after a fall.? Incident happened just prior to arrival.? He was on his porch when he lost his balance and fell.? He landed in flower bushes.? Had pain in his left knee, and abrasion.? Also pain in his hands from scratches.? He is not sure if he struck his head.? Was able to get back into the house and call his son.? When son tried to walk him to the car he had multiple other locations of pain, low back, knee, hands, head.? Denies loss of consciousness.? Does not take blood thinning medicines.? Denies chest pain, abdominal pain, nausea, vomiting, vision changes, numbness, weakness, tingling.? He does not think he passed out.? No preceding chest pain, palpitations, dizzy. Medical Decision Narrative: In summary this is an 87-year-old male with history of mild cognitive impairment presenting to the emergency department with head injury, left knee pain after a fall.? Patient clinically stable on arrival.? Vital signs within normal limits.? Will obtain screening CBC, CMP, urinalysis.? Will obtain noncontrast head CT, x-ray chest, lumbar spine, pelvis, left knee. Chest x-ray shows no rib fractures.? No pneumothorax. X-ray of the pelvis shows no acute finding. No lumbar fracture.? X-rays of the knee show no fracture.? There is a moderate effusion.? He continues to have a significant amount of pain in the knee joint.? Jaya wrap applied. CT scan of the head shows no skull fracture or intracranial bleed.? There is evidence of white matter changes, small vessel ischemic disease. Laboratory results show no leukocytosis.? No anemia.? No abnormality of glucose or electrolytes. On reassessment, patient is able to stand and walk, but requires assistance.? He is not steady on his feet.? This is possibly due to acute left knee injury, ligamentous or otherwise.? Discussed options with patient and his son at bedside.? He is not suitable for discharge home alone.? We will admit tonight, PT OT consult.? May need to see orthopedics about his knee.? He does not want to discuss long-term placement at this time. In addition patient has a history of hyperlipidemia, hypertension, anxiety, cerebral aneurysm, BPH, Parkinson's disease, and cognitive decline. This a.m. patient denies any pain. Physical therapy has been to visit and patient was assisted up to the chair without difficulty. He has completed his breakfast and enjoyed. He states he was able to take a few steps and bear weight without difficulty. See physical therapy notations. 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 Vitamin D deficiency Surgical History History of hernia repair History of knee surgery Family History Other Cancer Social History (Updated 09/16/22 @ 01:22 by Tiffanie Velazquez RN) Smoking Status: Never smoker alcohol intake: current substance use type: denies use current occupational status: retired Travel in the last 8 weeks: None household members: none housing: house caffeine: Yes Review of Systems Constitutional Constitutional: Reports headache(s) and Denies weakness Eyes Eyes: Denies loss of vision ENT Ears, Nose, Mouth, and Throat: Denies dizziness, Denies otalgia, Reports headache(s) and Denies sore throat *Cardiovascular Cardiovascular: Denies chest pain, Denies dyspnea and Denies leg edema *Respiratory Respiratory: Denies chest co
--- NOTE | 2022-09-16 10:46 | CARE MANAGER ---
Addendum entered by Camelia Srivastava 09/16/22 11:22: Natasha powers/ Edis stated that services will start Friday for this patient. Original Note: Received referral on the above stated patient for PT/OT and correction[facility]
--- NOTE | 2022-09-16 21:46 | ECG_ITS ---
APPROVED REPORT Exam: Resting ECG HR:76 bpm ECG Measurements Heart Rate 76 AXES WY 160 P 59 QRSd 101 QRS 52 QT 397 T 65 QTc 427 Conclusion SINUS RHYTHM NORMAL ECG UNCONFIRMED REPORT Electronically signed by : Orlin Villarreal MD 09/16/2022 16:38:47
--- NOTE | 2022-09-17 12:41 | CARE MANAGER ---
Spoke with patient son for post-discharge phone interview, he states that his Dad is doing well and has no needs at this time.
== END 2022-09-16 10:50 | disposition home health service (06) ==
LOC: ER 23:57 → 2ND 09-16 00:31
PROVIDERS: Admitting Provider Internal Medicine Adolescent Medicine; Emergency Provider Emergency Medicine; PCP Family Medicine; Visit Provider Family Medicine
DX: S83.92XA Sprain of unspecified site of left knee, initial encounter (principal); G20 Parkinson's disease; R26.81 Unsteadiness on feet; F02.80 Dementia in other diseases classified elsewhere, unspecified severity, without behavioral disturbance, psychotic disturbance, mood disturbance, and anxiety; G31.84 Mild cognitive impairment of uncertain or unknown etiology; Z79.899 Other long term (current) drug therapy; W17.89XA Other fall from one level to another, initial encounter; Y92.018 Other place in single-family (private) house as the place of occurrence of the external cause
CPT/HCPCS: G0378; 70450; 71045; 72100; 72170; 73562; 80053; 81001; 85025; 93005; 97162; 99285; C9803; U0003; U0005

== ENCOUNTER → 2022-09-27 10:05 | Outpatient (CLI) | payer MEDICARE, SELFPAY ==
--- NOTE | 2022-09-27 10:05 | NM_ITS ---
FINAL REPORT CLINICAL HISTORY: RUQ abd pain 10:45 am 7.79 mci tc choletec 1.6 mcg of cck injected into lt ant no pain during cck FINDINGS: Sequential anterior projection images of the abdomen were obtained after the intravenous injection of 7.79 mCi technetium 99m Choletec. There is normal uptake of radiotracer by the liver. The bile ducts, gallbladder, and bowel visualize normally. After 1 hour, 1.6 ?g of CCK was injected intravenously for calculation of gallbladder ejection fraction. The gallbladder ejection fraction is 68 %, which is within normal limits. IMPRESSION: No evidence of cystic duct or bile duct obstruction. Normal gallbladder ejection fraction of 68 %. Reviewed, Interpreted and Dictated by Timothy Russo III, MD Transcribed by Mode Sarmiento Authenticated and . [facility]
== END ==
PROVIDERS: PCP Family Medicine; Visit Provider Family Medicine
DX: R10.11 Right upper quadrant pain (principal)
CPT/HCPCS: 78227; A9537; J2805

== ENCOUNTER 2022-10-28 19:48 | Emergency (ER) | payer MEDICARE, SELFPAY ==
[2022-10-28 19:48] VITALS: BP 168/107; PULSE 67; RESP 16; TEMP 36.4; O2SAT 99; BMI 23.7
--- NOTE | 2022-10-28 19:56 | XR_ITS ---
PROCEDURE INFORMATION: Exam: XR Pelvis Exam date and time: 10/28/2022 8:17 PM Age: 87 years old Clinical indication: Injury or trauma; Fall; Blunt trauma (contusions or hematomas); Bilateral; Pelvic region TECHNIQUE: Imaging protocol: Radiologic exam of the pelvis. Views: 1 or 2 view. COMPARISON: CR XR PELVIS 1-2V 09/15/2022 9:58 PM FINDINGS: Bones/joints: Moderate degenerative changes of the hip joints are re-identified. No visible fracture or dislocation. Soft tissues: Unremarkable. IMPRESSION: No visible fracture or dislocation.
--- NOTE | 2022-10-28 19:56 | XR_ITS ---
PROCEDURE INFORMATION: Exam: XR Chest Exam date and time: 10/28/2022 8:17 PM Age: 87 years old Clinical indication: Injury or trauma; Fall; Blunt trauma (contusions or hematomas); Additional info: Weakness fall TECHNIQUE: Imaging protocol: Radiologic exam of the chest. Views: 1 view. COMPARISON: CR XR CHEST PORTABLE 09/15/2022 10:00 PM FINDINGS: Lungs: No evidence of pneumonia or interstitial edema. Pleural spaces: Unremarkable. No pleural effusion. No pneumothorax. Heart/Mediastinum: Unremarkable. No cardiomegaly. Bones/joints: Unremarkable. No acute osseous abnormality IMPRESSION: No evidence of pneumonia or interstitial edema.
--- NOTE | 2022-10-28 19:58 | ECG_ITS ---
APPROVED REPORT Exam: Resting ECG HR:65 bpm ECG Measurements Heart Rate 65 AXES MI 174 P 66 QRSd 103 QRS 78 QT 422 T 79 QTc 434 Conclusion SINUS RHYTHM WITH OCCASIONAL VENTRICULAR PREMATURE COMPLEXES BORDERLINE ECG UNCONFIRMED REPORT Electronically signed by : Orlin Villarreal MD 10/29/2022 20:57:11
[2022-10-28 20:18] LABS: Microscopic, Urine URINE MICROSCOPIC (MICROSCOPIC)
[2022-10-28 20:28] LABS: Coronavirus 19, PCR Not Detected (NotDetected); Influenza A, PCR Not Detected (NotDetected); Influenza B, PCR Not Detected (NotDetected)
[2022-10-28 20:38] LABS: Basophils # 0.1 K/mm3 (0-0.2); Eosinophils # 0.1 K/mm3 (0.0-0.4); Eosinophils % 2.1 % (0.1-12.0); Hematocrit 47.1 % (42.0-52.0); Lymphocytes # 1.1 K/mm3 (0.7-4.5); Lymphocytes % 20.9 % (10-50); Mean Corpuscular HGB Conc 31.9 g/dL (31.8-35.4); Mean Corpuscular Hemoglobin 30.9 pg (27.0-31.2); Mean Platelet Volume 10.3 fl (7.4-10.4); Monocytes # 0.4 K/mm3 (0.1-1.0); Neutrophils # 3.6 K/mm3 (1.8-7.8); Neutrophils % 68.9 % (37.0-80.0); Platelet Count 188 K/mm3 (142-424); Red Blood Count 4.85 M/mm3 (4.60-6.20); Red Cell Distribution Width 13.3 % (11.5-17.5); White Blood Count 5.2 K/mm3 (4.8-10.8)
[2022-10-28 20:39] LABS: Appearance,Urine CLEAR (Clear); Bilirubin,Urine Negative (Negative); Blood, Urine Negative (Negative); Color,Urine YELLOW (Yellow); Glucose,Urine (UA) Negative (Negative); Ketones,Urine Negative (Negative); Leukocyte Esterase,Urine Negative (Negative); Nitrate,Urine Negative (Negative); Protein,Urine Negative (Negative); Specific Gravity, Urine <= 1.005 (1.005-1.030); Urobilinogen,Urine 0.2 EU/dl (0.2)
[2022-10-28 21:02] LABS: Squamous Epithelial Cell,Urine Occasional #/hpf (0-5)
[2022-10-28 21:03] LABS: Chloride 103 mmol/L (98-107)
[2022-10-28 21:04] LABS: Potassium 3.2 mmoL/L (3.5-5.1); Sodium 136 mmol/L (136-145)
[2022-10-28 21:06] LABS: Alanine Aminotransferase 13 U/L (12-78); Aspartate Amino Transferase 21 U/L (17-59); Blood Urea Nitrogen 15 mg/dl (9-20); Creatinine Clearance Estimated 57 mL/min (50-200); Estimated Glomerular Filt Rate 64 ml/min (>60); GFR (African American) 77 ML/MIN (>60)
[2022-10-28 21:07] LABS: Albumin Level 3.9 g/dl (3.5-5.0); Albumin/Globulin Ratio 1.6 (1.1-1.8); Alkaline Phosphatase 66 U/L (38-126); Anion Gap 7.2 mEq/L (5-15); Bilirubin,Total 0.5 mg/dl (0.2-1.3); Calcium 9.5 mg/dl (8.4-10.2); Carbon Dioxide 29 mmol/L (22.0-30.0); Globulin 2.5 g/dL (1.3-3.2); Glucose 100 mg/dl (74-100); Total Protein,Serum 6.4 g/dl (6.3-8.2)
[2022-10-28 21:12] LABS: C-Reactive Protein 0.4 mg/L (0-4)
[2022-10-28 21:26] LABS: Troponin I < 0.01 ng/ml (0.00-0.034)
[2022-10-28 22:12] VITALS: BP 134/84; PULSE 60; RESP 14; O2SAT 99
--- NOTE | 2022-10-28 22:14 | PC.NURSE ---
Updated pt/family on scan results and POC
[2022-10-28 22:19] VITALS: BP 107/47; BP 134/84; BP 156/79; PULSE 59; PULSE 64; PULSE 70
[2022-10-28 22:21] LABS: Erythrocyte Sedimentation Rate 3 mm/hr (0-20)
[2022-10-28 22:31] VITALS: BP 144/90; PULSE 61; RESP 16; O2SAT 94
[2022-10-28 22:41] LABS: Procalcitonin 0.051 ng/mL (0.0-2.0)
--- NOTE | 2022-10-28 22:52 | PC.NURSE ---
Dr. Thakkar at
--- NOTE | 2022-10-28 22:56 | HMH.EDWEAK ---
Discharge Plan Disposition Patient Disposition: Admitted as Observation Chief Complaint: Weakness Clinical Impressions Clinical Impression: Fall, Dizziness Discharge ED Provider: Hermilo Thakkar Weakness HPI General Chief complaint: Weakness Stated complaint: fall, weak, no loc Time Seen by Provider: 10/28/22 22:56 Mode of Arrival: EMS Source of Information: Patient, Relative and EMS Limitations: No Limitations Description of Symptoms (Recalled from ER Triage Doc. by RN): Pt c/o weakness, dizzinss and have been falling several times. History of Present Illness HPI Narrative: episodes of dizzyness elana with standing and over weakness with fall tonight Complaint: generalized weakness Onset (ago): day(s) Duration: intermittent Migration: none Severity: moderate Context: history of similar Associated symptoms: denies other symptoms Related Data Home Medications Medication Instructions Recorded Confirmed ergocalciferol (vitamin D2) 1,250 1 tab PO WEEKLY Supplement 02/09/20 10/28/22 mcg (50,000 unit) capsule latanoprost 0.005 % eye drops 1 drops Eye-Both HS Glaucoma 02/09/20 10/28/22 ramipril 10 mg capsule 20 mg PO DAILY UNKNOWN 02/09/20 10/28/22 tamsulosin 0.4 mg capsule 1 tab PO DAILY prostate 02/09/20 10/28/22 simvastatin 40 mg tablet 40 mg PO DAILY Cholesterol 07/24/21 10/28/22 melatonin 10 mg capsule 10 mg PO HS sleep 02/26/22 10/28/22 psyllium husk 0.4 gram capsule 0.4 g PO DAILY . 02/26/22 10/28/22 (Metamucil) oxybutynin chloride 5 mg 5 mg PO DAILY bladder 09/05/22 10/28/22 tablet,extended release 24 hr carbidopa 25 mg-levodopa 100 mg See Rx Instructions PO TID memory 09/15/22 10/28/22 tablet rivastigmine tartrate 1.5 mg 1.5 mg PO BID . 09/15/22 10/28/22 capsule Previous Rx's Medication Instructions Recorded quetiapine 50 mg tablet 50 mg PO HS Depression 90 days #90 03/27/22 tabs fenofibrate micronized 134 mg 134 mg PO DAILY Cholesterol #90 09/16/22 capsule caps Allergies Allergy/AdvReac Type Severity Reaction Status Date / Time Penicillins Allergy Unknown Verified 09/25/22 11:45 PFSH PFSH Disclaimer: The information contained in this section may have been updated after the patient was seen, as this information can be updated by other users. 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 Vitamin D deficiency Surgical History History of hernia repair History of knee surgery Family History Other Cancer Social History Smoking Status: Never smoker alcohol intake: current substance use type: denies use current occupational status: retired Travel in the last 8 weeks: None household members: none housing: house caffeine: Yes ROS Obtained: Yes All systems reviewed & no additional complaints except as documented Physical Exam General General appearance: alert Head Head exam: normocephalic Eye Eye exam: Present PERRL and EOMI ENT ENT exam: Present mucous membranes moist and other (no evid of tongue biting ) Neck Neck exam: Present trachea midline Respiratory Respiratory exam: Absent respiratory distress Cardiovascular Cardiovascular exam: Present regular rate, systolic murmur and +S4 Abdominal Exam Abdominal exam: Present soft Extremities Exam Extremities exam: Present full ROM Neurological Exam Neurological exam: Present alert, oriented X3, CN II-XII intact and other (finger nose ok ); Absent motor sensory deficit Psychiatric Psychiatric exam: Absent normal mood Sk
[2022-10-28 23:01] VITALS: BP 119/71; PULSE 75; O2SAT 94
[2022-10-29] VITALS: BP 158/76; PULSE 80; O2SAT 99
--- NOTE | 2022-10-29 00:27 | PC.NURSE ---
Pt moved to room 1 where he would have a door and privacy. Pt made comfortable in hospital bed with warm blankets and pillow. Pt given orange juice to drink per request. No other needs voiced at this time. Call light within reach and pt made aware to press button if he needs any assistance.
--- NOTE | 2022-10-29 01:15 | PC.NURSE ---
Pt resting in bed comfortably. No needs voiced.
--- NOTE | 2022-10-29 02:05 | PC.NURSE ---
Pt continues to rest comfortably in bed. Call light within reach.
--- NOTE | 2022-10-29 03:20 | PC.NURSE ---
Breakfast tray order submitted
--- NOTE | 2022-10-29 04:15 | PC.NURSE ---
Pt continues to rest. No needs voiced. Call light within reach.
[2022-10-29 04:49] VITALS: BP 158/90; PULSE 66; O2SAT 97
--- NOTE | 2022-10-29 05:05 | PC.NURSE ---
Pt assisted to bathroom, and back to bed. AM labs drawn.
[2022-10-29 05:06] LABS: Basophils % 0.8 % (0.1-2.0); Eosinophils # 0.2 K/mm3 (0.0-0.4); Eosinophils % 4.2 % (0.1-12.0); Hematocrit 45.1 % (42.0-52.0); Hemoglobin 14.5 g/dL (14.1-18.0); Lymphocytes # 1.3 K/mm3 (0.7-4.5); Lymphocytes % 28.9 % (10-50); Mean Corpuscular Hemoglobin 30.6 pg (27.0-31.2); Mean Corpuscular Volume 95.6 fl (80-94); Mean Platelet Volume 10.5 fl (7.4-10.4); Monocytes # 0.4 K/mm3 (0.1-1.0); Monocytes % 8.4 % (1.7-9.3); Neutrophils # 2.6 K/mm3 (1.8-7.8); Neutrophils % 57.8 % (37.0-80.0); Platelet Count 175 K/mm3 (142-424); Red Blood Count 4.72 M/mm3 (4.60-6.20); Red Cell Distribution Width 13.4 % (11.5-17.5); White Blood Count 4.5 K/mm3 (4.8-10.8)
[2022-10-29 05:20] LABS: Chloride 109 mmol/L (98-107); Potassium 3.6 mmoL/L (3.5-5.1); Sodium 137 mmol/L (136-145)
[2022-10-29 05:23] LABS: Anion Gap 5.6 mEq/L (5-15); Blood Urea Nitrogen 13 mg/dl (9-20); Calcium 9.2 mg/dl (8.4-10.2); Carbon Dioxide 26 mmol/L (22.0-30.0); Creatinine Clearance Estimated 62 mL/min (50-200); Estimated Glomerular Filt Rate 80 ml/min (>60); GFR (African American) 97 ML/MIN (>60); Glucose 95 mg/dl (74-100)
--- NOTE | 2022-10-29 06:17 | PC.NURSE ---
Pt ambulatory to bathroom and back to bed. Breakfast tray provided at this time.
[2022-10-29 07:45] VITALS: BP 150/92; PULSE 71; RESP 18; O2SAT 94
--- NOTE | 2022-10-29 07:46 | PC.NURSE ---
rounded on pt at this time. pt finished with breakfast and pt resting at this time. call light in reach. lights turned down for comfort. no needs at this time.
[2022-10-29 08:00] VITALS: BP 180/97; PULSE 57; RESP 16; O2SAT 100
--- NOTE | 2022-10-29 08:56 | PC.NURSE ---
and assistance at bs
--- NOTE | 2022-10-29 09:07 | PC.NURSE ---
pcp states he is going to d/c pt home. and will place d/c orders
--- NOTE | 2022-10-29 09:30 | EXP.HPDC ---
General Admission date:: 10/28/22 Discharge date: 10/29/22 *Admission Date: 10/28/22 *Chief complaint: Multiple falls; leg weakness *History of present illness: Mr. Kelsey is an 86-year-old male with a history of hyperlipidemia, hypertension, anxiety, cerebral aneurysm, BPH, Parkinson's disease, and mild cognitive impairment who presented to [facility] emergency room after a fall at home. He states he was walking through the house and his legs just gave way and he fell. He is noted to have frequent falls and counted 15 in the last few months. Denies having any chest pain, shortness of breath, heart palpitations, nausea or vomiting. Her son previously has encouraged him to live with him but thus far he has refused. With evaluation in the emergency room hemoglobin was found to be 14.5 with a hematocrit of 45.1. White blood cell was low at 4.5. Electrolytes were satisfactory kidney function was good. Blood sugar was 95. Liver function studies were all normal. Urinalysis was negative. Pelvis x-ray revealed no visible fracture or dislocation. Chest x-ray showed no evidence of pneumonia or interstitial edema. Vital signs were stable. He did receive a liter of IV fluids. There were no beds available in the medical floor and thus he stayed in the emergency room throughout the night. [facility] Disclaimer: The information contained in this section may have been updated after the patient was seen, as this information can be updated by other users. 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 Vitamin D deficiency Surgical History History of hernia repair History of knee surgery Family History Other Cancer Social History Smoking Status: Never smoker alcohol intake: current substance use type: denies use current occupational status: retired Travel in the last 8 weeks: None household members: none housing: house caffeine: Yes Review of Systems Constitutional Constitutional: Denies body ache(s), Denies fever(s), Reports frequent falls, Denies headache(s) and Reports weakness Eyes Eyes: Denies change in vision ENT Ears, Nose, Mouth, and Throat: Denies otalgia, Denies headache(s), Denies sore throat and Reports vertigo *Cardiovascular Cardiovascular: Denies chest pain, Denies dyspnea, Denies palpitations, Denies rapid heart rate and Denies slow heart rate *Respiratory Respiratory: Denies chest congestion, Denies cough and Denies dyspnea *Gastrointestinal Gastrointestinal: Denies abdominal pain, Denies constipation, Denies diarrhea, Denies heartburn, Denies hematemesis, Denies loose stools and Denies vomiting *Genitourinary Genitourinary: Denies difficulty urinating *Musculoskeletal Musculoskeletal: Reports abnormal gait (Weak legs with multiple falls) *Neurologic Neurologic: Reports abnormal gait (Weak legs with multiple falls), Reports frequent falls, Denies headache(s), Reports vertigo and Reports weakness Endocrine Endocrine: Denies palpitations Exam Data for Last 24 hours Vital signs and Labs for Last 24 Hours: Temp Pulse Resp BP Pulse Ox 97.6 F 57 L 16 180/97 H 100 10/28/22 19:48 10/29/22 08:00 10/29/22 08:00 10/29/22 08:00 10/29/22 08:00 Laboratory Results - last 24 hr 10/28/22 20:12: Urine Color Yellow, Urine Appearance Clear, Urine pH 6.0, Ur Specific [place] <= 1.005, Urine Protein Negative, Urine Glucose (UA) Negative, Urine Ketones Negative, Urine Blood Negative, Urine Nitrate Negative, Urine
[2022-10-29 09:49] VITALS: BP 162/90; PULSE 62; RESP 20; TEMP 36.8; O2SAT 99
== END 2022-10-29 09:51 | disposition home or self-care (01) ==
LOC: ER 22:49 → 2ND 23:32
PROVIDERS: Emergency Provider Emergency Medicine; PCP Family Medicine
DX: R42 Dizziness and giddiness (principal); R29.6 Repeated falls; Z79.899 Other long term (current) drug therapy; Z88.0 Allergy status to penicillin; N18.30 Chronic kidney disease, stage 3 unspecified; E78.5 Hyperlipidemia, unspecified; G20 Parkinson's disease; G31.84 Mild cognitive impairment of uncertain or unknown etiology
CPT/HCPCS: 71045; 72170; 80048; 80053; 81001; 84145; 84484; 85025; 85651; 86140; 93005; 96365; 99285; C9803; U0003; U0005

== ENCOUNTER → 2022-11-06 10:51 | Outpatient (CLI) | payer MEDICARE, SELFPAY ==
[2022-11-06 18:55] LABS: Chloride 106 mmol/L (98-107); Sodium 142 mmol/L (136-145)
[2022-11-06 18:58] LABS: Blood Urea Nitrogen 13 mg/dl (9-20); Carbon Dioxide 28 mmol/L (22.0-30.0); Estimated Glomerular Filt Rate 71 ml/min (>60); GFR (African American) 86 ML/MIN (>60); Glucose 87 mg/dl (74-100)
[2022-11-06 18:59] LABS: Calcium 9.7 mg/dl (8.4-10.2)
== END ==
PROVIDERS: PCP Family Medicine; Visit Provider Family Medicine
DX: E87.6 Hypokalemia (principal)
CPT/HCPCS: 80048

== ENCOUNTER → 2022-12-04 10:26 | Outpatient (CLI) | payer MEDICARE, SELFPAY ==
[2022-12-04 18:37] LABS: Chloride 107 mmol/L (98-107)
[2022-12-04 18:38] LABS: Sodium 140 mmol/L (136-145)
[2022-12-04 18:40] LABS: Blood Urea Nitrogen 14 mg/dl (9-20); Estimated Glomerular Filt Rate 80 ml/min (>60); GFR (African American) 97 ML/MIN (>60)
[2022-12-04 18:41] LABS: Calcium 8.8 mg/dl (8.4-10.2); Carbon Dioxide 26 mmol/L (22.0-30.0); Glucose 91 mg/dl (74-100)
== END ==
PROVIDERS: PCP Family Medicine; Visit Provider Family Medicine
DX: E87.6 Hypokalemia (principal)
CPT/HCPCS: 80048

== ENCOUNTER 2022-12-31 11:29 | Emergency (ER) | payer MEDICARE, SELFPAY ==
[2022-12-31 11:44] VITALS: BP 146/82; PULSE 60; RESP 16; TEMP 36.5; O2SAT 98; BMI 23.7
[2022-12-31 12:00] VITALS: BP 139/80; PULSE 61; RESP 20; O2SAT 98
--- NOTE | 2022-12-31 12:19 | XR_ITS ---
FINAL REPORT CLINICAL HISTORY: fall FINDINGS: RIGHT RIB SERIES Four views of the right ribs show no fractures. There is no pneumothorax or pleural fluid collection. Frontal radiograph is unremarkable. IMPRESSION: Negative right rib series. No pneumothorax. Reviewed, Interpreted and Dictated by Yuval Joshua MD Transcribed by Alis Hung Authenticated and [facility]
--- NOTE | 2022-12-31 12:19 | XR_ITS ---
FINAL REPORT CLINICAL HISTORY: fall FINDINGS: RIGHT KNEE 3 views of the right knee were obtained. There is no acute fracture or dislocation. Visualized joint spaces are normally aligned. There are small osteophytes along the undersurface of the patella. There is a small joint effusion. IMPRESSION: No acute bony abnormality. Small joint effusion. Reviewed, Interpreted and Dictated by Yuval Joshua MD Transcribed by Alis Hung Authenticated and [facility]
--- NOTE | 2022-12-31 12:39 | PC.NURSE ---
pt to radiology
[2022-12-31 13:00] VITALS: BP 137/76; PULSE 60; O2SAT 95
--- NOTE | 2022-12-31 13:07 | PC.NURSE ---
nico frausto at
--- NOTE | 2022-12-31 13:11 | HMH.EDGENADL ---
Discharge Plan Disposition Patient Disposition: Home, Self-Care Condition: Good Chief Complaint: Fall Prescriptions Prescriptions: No Action melatonin 10 mg capsule 10 mg PO HS psyllium husk [Metamucil] 0.4 gram capsule 0.4 g PO DAILY quetiapine 50 mg tablet 50 mg PO HS 90 Days Qty: 90 1RF Rx Instructions: 90 day request rcvd via fax oxybutynin chloride 5 mg tablet extended release 24hr 5 mg PO DAILY pneumoc 20-taty conj-dip cr(PF) 0.5 mL syringe 0.5 ml IM ONCE Qty: 0.5 0RF cholecalciferol (vitamin D3) 1,250 mcg (50,000 unit) capsule 1,250 mcg PO Label Comments: TAKE 1 CAPSULE BY MOUTH ONCE A WEEK fenofibrate micronized 134 mg capsule 134 mg PO DAILY Qty: 90 0RF latanoprost 0.005 % bottle 1 drops EYE-BOTH HS tamsulosin 0.4 MG capsule 1 tab PO DAILY ramipril 10 MG capsule 20 mg PO DAILY simvastatin 40 mg tablet 40 mg PO DAILY rivastigmine tartrate 1.5 mg capsule 1.5 mg PO BID carbidopa-levodopa 25-100 mg tablet See Rx Instructions PO TID Rx Instructions: 1-1.5 tabs PO three times a day; Referrals Follow up/Referrals: Alberto Skinner MD [Primary Care Provider] - See instructions Activity Restrictions/Add. Instructions Additional Instructions/Restrictions: [id number] Tylenol for pain. Follow-up with primary care provider for further care, call for appointment. Additional instructions for RIB INJURIES: See your physician as soon as possible for further evaluation. Hold a pillow against your injured ribs to help with pain when coughing or sneezing. Sleep with several pillows to help support you in the most comfortable position. Take deep breaths frequently. Return immediately if shortness of breath, intolerable pain, coughing of blood, abdominal pain or vomiting. Clinical Impressions Clinical Impression: Contusion of rib on right side, Abrasion of knee Instructions Patient Instructions: How to Prevent Falls, DI for Rib Contusion, DI for Abrasion Discharge ED Provider: Favian George General Adult HPI General Chief complaint: Fall Stated complaint: Fall 2/6 RT rib pain hoarse voice Time Seen by Provider: 12/31/22 12:27 Mode of Arrival: Ambulatory Source of Information: Patient and Relative Limitations: No Limitations Description of Symptoms (Recalled from ER Triage Doc. by RN): pt reports a fall last night onto a side walk. pt reports pain in right sided of rib area. pt also has abrasion to right knee. pts reports voice becomining hoarse after the fall happeneed. pt does have some dyspnea at baseline, it has not changed since the fall. History of Present Illness HPI narrative: Patient tripped in the dark on a concrete parking we will stop, falling and striking his right ribs on the wheel stopped. He complains of pain in the right lateral ribs ever since then. He has no pain at rest, but has pain when he tries to move. No hemoptysis. He has some chronic shortness of breath which is unchanged. He reports that his voice became hoarse after the fall, but did not strike his anterior neck and has no throat or neck pain. No pain with swallowing or with speaking. He denies abdominal pain or vomiting. He has not recently been ill. No URI symptoms. No rhinorrhea, cough, fever. He has taken Tylenol for pain. He also skinned his right knee when he fell. No difficulty ambulating. Related Data Home Medications Medication Instructions Recorded Confirmed latanoprost 0.005 % eye drops 1 drops Eye-Both HS Glaucoma 02/09/20 12/04/22 ramipril 10 mg capsule 20 mg PO DAILY UNKNOWN 02/09/20 12/04/22 tamsulosin 0.4 mg capsule 1 tab PO DAILY prostate 02/09/20 12/04/22 simvastatin 40 mg tablet 40 mg PO DAILY Cholesterol 07/24/21 12/04/22 melatonin 10 mg capsule 10 mg PO HS sleep 02/26/22 12/04/22 psyllium husk 0.4 gram capsule 0.4 g PO DAILY . 02/26/22 12/04/22 (Metamucil) oxybutynin chloride
[2022-12-31 13:31] VITALS: BP 147/88; PULSE 56; RESP 98; O2SAT 98
[2022-12-31 13:47] VITALS: BP 146/74; PULSE 54; RESP 20; O2SAT 98
[2022-12-31 13:53] VITALS: BP 146/74; PULSE 53; RESP 16; TEMP 36.7
== END 2022-12-31 13:54 | disposition home or self-care (01) ==
PROVIDERS: Emergency Provider Emergency Medicine; PCP Family Medicine
DX: S20.211A Contusion of right front wall of thorax, initial encounter (principal); S80.211A Abrasion, right knee, initial encounter; W19.XXXA Unspecified fall, initial encounter; N18.30 Chronic kidney disease, stage 3 unspecified; I12.9 Hypertensive chronic kidney disease with stage 1 through stage 4 chronic kidney disease, or unspecified chronic kidney disease; Z86.16 Personal history of COVID-19; R29.6 Repeated falls; E78.5 Hyperlipidemia, unspecified; Z87.442 Personal history of urinary calculi; Z87.19 Personal history of other diseases of the digestive system; Z80.9 Family history of malignant neoplasm, unspecified
CPT/HCPCS: 71101; 73562; 99284

== ENCOUNTER → 2023-03-05 18:44 | Outpatient (CLI) | payer MEDICARE, SELFPAY | PROVIDERS: PCP Family Medicine; Visit Provider Family Medicine | DX: R32 Unspecified urinary incontinence (principal); B96.29 Other Escherichia coli [E. coli] as the cause of diseases classified elsewhere; B96.1 Klebsiella pneumoniae [K. pneumoniae] as the cause of diseases classified elsewhere | CPT/HCPCS: 87086; 87088; 87186 ==

== ENCOUNTER 2023-05-07 11:11 | Emergency (ER) | payer MEDICARE, SELFPAY ==
[2023-05-07] VITALS (8 sets, daily range): BP systolic 136–181; BP diastolic 65–113; PULSE 56–63; RESP 16; TEMP 36.6; O2SAT 97–99; BMI 24.4
--- NOTE | 2023-05-07 11:19 | XR_ITS ---
FINAL REPORT CLINICAL HISTORY: fall COMPARISON: 09/15/2022 FINDINGS: Left knee Three views were obtained. There is no acute fracture or dislocation. There are severe degenerative changes of the knee, stable from prior. Small joint effusion is identified. IMPRESSION: Stable degenerative changes and small joint effusion. Reviewed, Interpreted and Dictated by Timothy Russo III, MD Transcribed by Berenice Christianson Authenticated and . [facility]
--- NOTE | 2023-05-07 11:19 | XR_ITS ---
FINAL REPORT CLINICAL HISTORY: fall FINDINGS: Left femur Two views were obtained. There is no acute fracture or dislocation. There are mild degenerative changes of the hip. There are severe degenerative changes of the knee. Vascular calcification is identified. IMPRESSION: Degenerative changes without acute process. Reviewed, Interpreted and Dictated by Timothy Russo III, MD Transcribed by Berenice Christianson Authenticated and [facility]
--- NOTE | 2023-05-07 11:22 | HMH.EDGENADL ---
Discharge Plan Disposition Patient Disposition: Home, Self-Care Condition: Fair Chief Complaint: Fall Prescriptions Prescriptions: No Action melatonin 10 mg capsule 10 mg PO HS psyllium husk [Metamucil] 0.4 gram capsule 0.4 g PO DAILY pneumoc 20-taty conj-dip cr(PF) 0.5 mL syringe 0.5 ml IM ONCE Qty: 0.5 0RF sulfamethoxazole-trimethoprim [Bactrim DS] 800-160 mg tablet 1 tab PO BID 7 Days Qty: 14 0RF carbidopa-levodopa 25-100 mg tablet See Rx Instructions PO TID Qty: 360 1RF Rx Instructions: 1-1.5 tabs PO three times a day; quetiapine 50 mg tablet 50 mg PO HS 90 Days Qty: 90 1RF Rx Instructions: 90 day request rcvd via fax simvastatin 40 mg tablet 40 mg PO DAILY Qty: 30 2RF fenofibrate micronized 134 mg capsule See Rx Instructions .ROUTE .COMPLEX Qty: 90 1RF Dose Instruction: TAKE 1 CAPSULE ORALLY DAILY FOR CHOLESTEROL Rx Instructions: TAKE 1 CAPSULE ORALLY DAILY FOR CHOLESTEROL rivastigmine tartrate 1.5 mg capsule See Rx Instructions .ROUTE .COMPLEX Qty: 180 1RF Dose Instruction: TAKE 1 CAPSULE ORALLY TWICE A DAY Rx Instructions: TAKE 1 CAPSULE ORALLY TWICE A DAY cholecalciferol (vitamin D3) 1,250 mcg (50,000 unit) capsule See Rx Instructions .ROUTE .COMPLEX Qty: 13 1RF Dose Instruction: TAKE 1 CAPSULE BY MOUTH ONCE A WEEK Rx Instructions: TAKE 1 CAPSULE BY MOUTH ONCE A WEEK oxybutynin chloride 5 mg tablet extended release 24hr See Rx Instructions .ROUTE .COMPLEX Qty: 90 0RF Dose Instruction: TAKE 1 TABLET BY MOUTH EVERY DAY FOR 30 DAYS Rx Instructions: TAKE 1 TABLET BY MOUTH EVERY DAY FOR 30 DAYS latanoprost 0.005 % bottle 1 drops EYE-BOTH HS tamsulosin 0.4 MG capsule 1 tab PO DAILY ramipril 10 MG capsule 20 mg PO DAILY Referrals Follow up/Referrals: Alberto Skinner MD [Primary Care Provider] - See instructions Clinical Impressions Clinical Impression: Contusion of knee, left Instructions Patient Instructions: How to Prevent Falls, DI for Knee Pain Discharge ED Provider: Hector Menard General Adult HPI General Chief complaint: Fall Stated complaint: knee pain from fall Time Seen by Provider: 05/07/23 11:12 History of Present Illness HPI narrative: This is a 87-year-old white male with history of Parkinson's disease and Lewy body dementia who presents to the emergency room via EMS after mechanical fall. Patient is complaining of pain in his left knee. Patient denies any head trauma loss of consciousness neck or back pain. Patient denies chest pain pressure heaviness cough hemoptysis shortness of breath. Related Data Home Medications Medication Instructions Recorded Confirmed latanoprost 0.005 % eye drops 1 drops Eye-Both HS Glaucoma 02/09/20 03/05/23 ramipril 10 mg capsule 20 mg PO DAILY UNKNOWN 02/09/20 03/05/23 tamsulosin 0.4 mg capsule 1 tab PO DAILY prostate 02/09/20 03/05/23 melatonin 10 mg capsule 10 mg PO HS sleep 02/26/22 03/05/23 psyllium husk 0.4 gram capsule 0.4 g PO DAILY . 02/26/22 03/05/23 (Metamucil) Previous Rx's Medication Instructions Recorded carbidopa 25 mg-levodopa 100 mg See Rx Instructions PO TID memory 01/01/23 tablet #360 tabs quetiapine 50 mg tablet 50 mg PO HS Depression 90 days #90 01/01/23 tabs simvastatin 40 mg tablet 40 mg PO DAILY Cholesterol #30 tabs 02/17/23 sulfamethoxazole 800 1 tab PO BID 7 days #14 tabs 03/05/23 mg-trimethoprim 160 mg tablet (Bactrim DS) fenofibrate micronized 134 mg See Rx Instructions .Route 03/17/23 capsule .COMPLEX #90 caps rivastigmine tartrate 1.5 mg See Rx Instructions .Route 04/02/23 capsule .COMPLEX #180 caps cholecalciferol (vitamin D3) 1,250 See Rx Instructions .Route 04/22/23 mcg (50,000 unit) capsule .COMPLEX #13 caps oxybutynin chloride 5 mg See Rx Instructions .Route 04/28/23 tablet,extended release 24 hr .COMPLEX #90 tabs Allergies Allergy/AdvRe
== END 2023-05-07 14:47 | disposition home or self-care (01) ==
PROVIDERS: Emergency Provider Emergency Medicine; PCP Family Medicine
DX: S80.02XA Contusion of left knee, initial encounter (principal); G20 Parkinson's disease; G31.83 Neurocognitive disorder with Lewy bodies; W19.XXXA Unspecified fall, initial encounter; I12.9 Hypertensive chronic kidney disease with stage 1 through stage 4 chronic kidney disease, or unspecified chronic kidney disease; N18.30 Chronic kidney disease, stage 3 unspecified; E78.5 Hyperlipidemia, unspecified
CPT/HCPCS: 73552; 73562; 99283; 99284

== ENCOUNTER 2023-12-03 11:05 | Outpatient (CLI) | payer MEDICARE, SELFPAY ==
--- NOTE | 2023-12-03 11:15 | XR_ITS ---
FINAL REPORT CLINICAL HISTORY: .left shoulder pain COMPARISON: None FINDINGS: LEFT SHOULDER: 3 views of the left shoulder were obtained. There is no acute fracture or dislocation. There is mild AC and moderate glenohumeral joint degenerative change. 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 There is no soft tissue abnormality. 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 If indicated, MRI could further evaluate. Reviewed, Interpreted and Dictated by Timothy Russo III, MD Transcribed by Christina Torres Authenticated and [facility]
--- NOTE | 2023-12-03 11:16 | XR_ITS ---
FINAL REPORT CLINICAL HISTORY: .left knee pain COMPARISON: None FINDINGS: Three views of the left knee reveal no evidence of fracture or dislocation. The bony alignment is normal. There is moderate and severe degenerative change. There is severe lateral compartment narrowing. There is a moderate joint effusion. Vascular calcifications are noted. IMPRESSION: Moderate and severe degenerative changes. Moderate joint effusion without acute bony abnormality. Reviewed, Interpreted and Dictated by Timothy Russo III, MD Transcribed by Christina Torres Authenticated and [facility]
== END 2023-12-03 23:59 ==
PROVIDERS: PCP Family Medicine; Visit Provider Family Medicine
DX: M25.512 Pain in left shoulder (principal); M25.562 Pain in left knee
CPT/HCPCS: 73030; 73562

== ENCOUNTER 2024-12-13 18:30 | Emergency (ER) | payer MEDICARE, SELFPAY ==
--- NOTE | 2024-12-13 18:29 | CT_ITS ---
PROCEDURE INFORMATION: Exam: CT Lumbar Spine Without Contrast Exam date and time: 12/13/2024 6:55 PM Age: 89 years old Clinical indication: Injury or trauma; Additional info: Fall, lumbar spine and L hip pain TECHNIQUE: Imaging protocol: Computed tomography of the lumbar spine without contrast. Radiation optimization: All CT scans at this facility use at least one of these dose optimization techniques: automated exposure control; mA and/or kV adjustment per patient size (includes targeted exams where dose is matched to clinical indication); or iterative reconstruction. COMPARISON: CR XR LUMBAR SPINE 2-3V 09/15/2022 10:01 PM FINDINGS: Bones/joints: No acute fracture identified. Multilevel degenerative changes most pronounced at the L3-L4 and L4-L5 levels with associated degenerative retrolisthesis. At L3-L4 moderate central canal and bilateral foramina narrowing. At L4-L5 adub-he-yxlafgip central canal and rtmhnwct-he-ebeykr foramina narrowing. Soft tissues: Unremarkable. IMPRESSION: Advanced degenerative changes most pronounced at L3-L4 and L4-L5. No acute abnormality.
--- NOTE | 2024-12-13 18:29 | CT_ITS ---
PROCEDURE INFORMATION: Exam: CT Cervical Spine Without Contrast Exam date and time: 12/13/2024 6:51 PM Age: 89 years old Clinical indication: Injury or trauma; Additional info: Fall, struck head TECHNIQUE: Imaging protocol: Computed tomography of the cervical spine without contrast. Radiation optimization: All CT scans at this facility use at least one of these dose optimization techniques: automated exposure control; mA and/or kV adjustment per patient size (includes targeted exams where dose is matched to clinical indication); or iterative reconstruction. COMPARISON: CT HEAD/BRAIN WO CON 12/13/2024 6:49 PM FINDINGS: Bones: Osteopenia. Craniocervical alignment is normal. The occipital condyles are intact. The odontoid is intact. Moderate-severe osteoarthritic sclerosis and spurring at the atlantodens interval. No jumped or perched facets. Multilevel osteoarthritic facet ankylosis and hypertrophic change bilaterally. Partial interbody ankylosis C3-C4 and C4-C5. No fractures. Slight 2 mm osteoarthritic anterolisthesis C5-C6, C6-C7, and C7-T1. No compressive soft disc protrusion or extrusion is evident by CT. No significant canal stenosis. There is left foraminal stenosis which is moderate at C5-C6. Lungs: Mild pleuroparenchymal scarring in the pulmonary apices bilaterally. Thyroid: The visualized thyroid gland is unremarkable. Vasculature: Moderate atherosclerotic calcific plaque in the carotid bulbs. Soft tissues: No acute soft tissue abnormalities. IMPRESSION: 1. No evidence of acute fracture or traumatic subluxation. 2. Osteopenia and osteoarthritic changes detailed above.
--- NOTE | 2024-12-13 18:29 | CT_ITS ---
PROCEDURE INFORMATION: Exam: CT Pelvis Without Contrast, Skeleton Exam date and time: 12/13/2024 6:58 PM Age: 89 years old Clinical indication: Injury or trauma; Additional info: Fall onto L hip, pain TECHNIQUE: Imaging protocol: Computed tomography of the pelvis without contrast. Exam focused on the skeleton. Radiation optimization: All CT scans at this facility use at least one of these dose optimization techniques: automated exposure control; mA and/or kV adjustment per patient size (includes targeted exams where dose is matched to clinical indication); or iterative reconstruction. COMPARISON: CT ABDOMEN PELVIS W CON 07/25/2021 7:15 AM FINDINGS: Bones/joints: A comminuted fracture of the anterolateral left iliac bone is noted with an adjacent hematoma anteriorly measuring around 5.7 x 4.9 x 8.8 cm. No other fracture seen. Degenerative changes of both hips. Soft tissues: Unremarkable. IMPRESSION: Left iliac bone with adjacent 8.8 cm hematoma noted anteriorly involving the iliacus muscle.
--- NOTE | 2024-12-13 18:29 | CT_ITS ---
PROCEDURE INFORMATION: Exam: CT Head Without Contrast Exam date and time: 12/13/2024 6:49 PM Age: 89 years old Clinical indication: Injury or trauma; Additional info: Fall , hit head TECHNIQUE: Imaging protocol: Computed tomography of the head without contrast. Radiation optimization: All CT scans at this facility use at least one of these dose optimization techniques: automated exposure control; mA and/or kV adjustment per patient size (includes targeted exams where dose is matched to clinical indication); or iterative reconstruction. COMPARISON: CT HEAD/BRAIN WO CON 09/15/2022 10:16 PM FINDINGS: Brain: Moderate generalized cerebral/cerebellar atrophy. Mild-moderate bilateral white matter hypodensities which are nonspecific but most commonly associated with chronic microvascular ischemia in this age group. The IACs are grossly normal. Small chronic arachnoid cyst in the left middle cranial fossa measuring 2.7 x 1.5 cm, unchanged from 09/15/2022 without mass effect. Mild prominence of the peripheral CSF spaces, related to generalized atrophy. No evidence of acute intracranial hemorrhage. Cerebral/cerebellar jordan-white matter differentiation is well maintained. No CT evidence of large territory acute or subacute intracranial ischemia/infarct. No intracranial mass lesions. No midline shift or herniation. Cerebral ventricles: Mild compensatory ventriculomegaly secondary to central atrophy. Paranasal sinuses: Visualized paranasal sinuses are clear. Mastoid air cells: Visualized mastoid air cells are clear. Orbital cavities: No acute intraorbital findings. Prior bilateral ocular cataract surgery. Bones: No acute osseous findings. Soft tissues: No acute soft tissue findings. Vasculature: Moderate calcific atherosclerosis. No asymmetric vascular hyperdensities suggestive of thrombosis are identified. IMPRESSION: No acute intracranial process. No intracranial hemorrhage or mass effect. No significant change from 09/15/2022.
[2024-12-13 18:30] VITALS: BP 221/127; PULSE 59; RESP 20; TEMP 36.6; O2SAT 99; BMI 24.4
--- NOTE | 2024-12-13 18:31 | PC.NURSE ---
DR MEEKS AT BEDSIDE
--- NOTE | 2024-12-13 18:47 | PC.NURSE ---
Patient to radiology
[2024-12-13] MEDS: ACETAMINOPHEN 500MG TAB 1000 MG PO (18:50)
[2024-12-13] MEDS: ONDANSETRON 4MG/2ML VIAL 4 MG IV (18:50)
[2024-12-13] MEDS: IBUPROFEN 600 MG TABLET PO (18:51)
[2024-12-13] MEDS: MORPHINE 4MG/ML SYRINGE 4 MG IV (18:51)
--- NOTE | 2024-12-13 18:57 | HMH.EDGENADL ---
Discharge Plan Disposition Patient Disposition: Xfer Short-Term Hosp Chief Complaint: Fall Prescriptions Prescriptions: No Action melatonin 10 mg capsule 10 mg PO HS psyllium husk [Metamucil] 0.4 gram capsule 0.4 g PO DAILY pneumoc 20-taty conj-dip cr(PF) 0.5 mL syringe 0.5 ml IM ONCE Qty: 0.5 0RF carbidopa-levodopa 25-100 mg tablet See Rx Instructions PO TID Qty: 360 1RF Rx Instructions: 1-1.5 tabs PO three times a day; quetiapine 50 mg tablet 50 mg PO HS 90 Days Qty: 90 1RF Rx Instructions: 90 day request rcvd via fax fenofibrate micronized 134 mg capsule See Rx Instructions .ROUTE .COMPLEX Qty: 90 1RF Dose Instruction: TAKE 1 CAPSULE ORALLY DAILY FOR CHOLESTEROL Rx Instructions: TAKE 1 CAPSULE ORALLY DAILY FOR CHOLESTEROL rivastigmine tartrate 1.5 mg capsule See Rx Instructions .ROUTE .COMPLEX Qty: 180 1RF Dose Instruction: TAKE 1 CAPSULE ORALLY TWICE A DAY Rx Instructions: TAKE 1 CAPSULE ORALLY TWICE A DAY cholecalciferol (vitamin D3) 1,250 mcg (50,000 unit) capsule See Rx Instructions .ROUTE .COMPLEX Qty: 13 1RF Dose Instruction: TAKE 1 CAPSULE BY MOUTH ONCE A WEEK Rx Instructions: TAKE 1 CAPSULE BY MOUTH ONCE A WEEK oxybutynin chloride 5 mg tablet extended release 24hr See Rx Instructions .ROUTE .COMPLEX Qty: 90 0RF Dose Instruction: TAKE 1 TABLET BY MOUTH EVERY DAY FOR 30 DAYS Rx Instructions: TAKE 1 TABLET BY MOUTH EVERY DAY FOR 30 DAYS simvastatin 40 mg tablet See Rx Instructions .ROUTE .COMPLEX Qty: 90 0RF Dose Instruction: TAKE 1 TABLET BY MOUTH EVERY DAY FOR CHOLESTEROL Rx Instructions: TAKE 1 TABLET BY MOUTH EVERY DAY FOR CHOLESTEROL tamsulosin 0.4 MG capsule 1 tab PO DAILY ramipril 10 MG capsule 20 mg PO DAILY Referrals Follow up/Referrals: Alberto Skinner MD [Primary Care Provider] - See instructions Clinical Impressions Clinical Impression: Closed fracture of left ilium, Hematoma of pelvis Print Language Print Language: Italian Discharge ED Provider: Carlos Nieves General Adult HPI General Chief complaint: Fall Stated complaint: LEFT HIP PAIN Time Seen by Provider: 12/13/24 18:31 Mode of Arrival: EMS Source of Information: Patient and EMS Limitations: No Limitations Description of Symptoms (Recalled from ER Triage Doc. by RN): pt was getting up off toilet and slipped and fell, pt mainly complains of discomfort in the left hip area, pt is alert but oriented times 2 at baseline History of Present Illness HPI narrative: Please note that above description of symptoms, in this electronic medical record under categorization of recalled from ER triage doctor by RN are reflective of an initial nursing assessment, however, is not reflective of my full history and physical exam that was personally taken and clarified. Consequentially, this preceding description of symptoms, which may include the patient's categorized chief complaint in the EMR, do not reflect my personal clinical impression, and the ultimate description of history of present illness and patient stated complaints should be deferred to this section of the note. Unless stated otherwise or congruent with this section of the note, additional signs, symptoms, or incongruence should be interpreted as inaccurate with my clinical impression. Related Data Home Medications ?Medication ?Instructions ?Recorded ?Confirmed ramipril 10 mg capsule 20 mg PO DAILY UNKNOWN 02/09/20 05/14/23 tamsulosin 0.4 mg capsule 1 tab PO DAILY prostate 02/09/20 05/14/23 melatonin 10 mg capsule 10 mg PO HS sleep 02/26/22 05/14/23 psyllium husk 0.4 gram capsule 0.4 g PO DAILY . 02/26/22 05/14/23 (Metamucil) Previous Rx's ?Medication ?Instructions ?Recorded carbidopa 25 mg-levodopa 100 mg See Rx Instructions PO TID memory 01/01/23 tablet #360 tabs quetiapine 50 mg tablet 50 mg PO HS Depression 90 days #90 01/01/23 tabs fenofibrate micronized 134 mg See Rx Instructions .Route 03/17/23 capsule .COMPLEX #90 caps rivastigmine tartrate 1.5 mg See Rx Instructions .Route 04/02/23 capsule .COMPLEX #180 caps cholecalciferol (vitamin D3) 1,250 See Rx Instructions .Route 04/22/23 mcg (50,000 unit) capsule .COMPLEX #13 caps oxybutynin chloride 5 mg See Rx Instructions .Route 04/28/23 tablet,extended release 24 hr .COMPLEX #90 tabs simvastatin 40 mg tablet See Rx Instructions .Route 05/19/23 .COMPLEX #90 tabs Allergies Allergy/AdvReac Type Severity Reaction Status Date / Time Penicillins Allergy Unknown Verified 05/14/23 11:[address] [facility] Disclaimer: The information contained in this section may have been updated after the patient was seen, as this information can be updated by other users. Medical History Aneurysm Atypical chest pain CKD (chronic kidney disease) stage 3, GFR 30-59 ml/min COVID-19 Dizziness Dizziness Encephalopathy acute Frequent falls Glaucoma HTN (hypertension) Hyperlipidemia Hypokalemia Kidney stone MCI (mild cognitive impairment) with memory loss Short-term memory impairment, cognitive decline but able to return home independent with family oversight. Encephalopathy in the setting of intercurrent infection has resolved. 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 Good response to carbidopa/levodopa. Vitamin D deficiency Surgical History History of hernia repair History of knee surgery Family History Other Cancer Social History Smoking Status: Never smoker alcohol intake: current alcohol intake frequency: 0-2 drinks per day substance use type: denies use current occupational status: retired Travel in the last 8 weeks: None household members: none housing: house caffeine: Yes Have you lived/traveled outside [place] in past 30 days?: No Contact w/someone who lives/traveled outside US past 30 days?: No Exposure to someone with infectious disease in past 14 days?: No Do you have a fever (greater than 100.4 F or 38 C)?: No Have you tested positive for COVID-19: No Exposed to someone with COVID-19 in past 14 days?: No Do you have a sore throat?: No Do you have a cough?: No Do you have any weakness?: No Do you have any diarrhea?: No Are you experiencing any unusual bleeding?: No Do you have any muscle aches/pain?: No Do you have any abdominal pain?: No Are you experiencing loss of taste or smell?: No Other Medical History Have you received the Flu Vaccine for this season: No Have you received the Pneumonia Vaccine: Yes ROS Obtained: Yes All systems reviewed & no additional complaints except as documented Physical Exam General General appearance: alert and in distress (Mild to moderate distress secondary to pain) Head Head exam: atraumatic and normocephalic Eye Eye exam: Present normal appearance, PERRL and EOMI Neck Neck exam: Present normal inspection, full ROM and trachea midline Respiratory Respiratory exam: Absent respiratory distress, wheezes, stridor, accessory muscle use or prolonged expiratory phase Cardiovascular Cardiovascular exam: Present other (Pulses equal symmetric in upper and lower extremities) Abdominal Exam Abdominal exam: Present soft; Absent distention, tenderness or pulsatile mass Extremities Exam Extremities exam: Present other (Pains resp of left hip. Superficial bruising, no palpable hematoma. Left lower extremity in external rotation, does not appear to be significantly shortened.); Absent edema Neurological Exam Neurological exam: Present alert, oriented X3 and CN II-XII intact; Absent motor sensory deficit Skin Skin exam: Present warm and dry; Absent diaphoresis or erythema Medical Decision Making Medical Records Medical records reviewed: Yes I reviewed the patient's medical records. Screening: Per USPSTF and CDC recommendations, given the prevalence of disease in our region, it is our hospital?s policy to screen for HIV and viral Hepatitis for all patients aged 18 and over and those with ongoing risk factors. Viraj Inquiry Pt receiving controlled substance: No Viarj was queried for this patient: No Vital Signs: 12/13/24 18:30 Temperature 98 F Temperature Source Oral Pulse Rate [Left Radial] 59 L Respiratory Rate 20 Blood Pressure [Right Arm] 221/127 H Blood Pressure Mean [Right Arm] 158 02 Sat by Pulse Oximetry 99 Oxygen Delivery Method Room Air Orders (Tests/Meds): ED MEDICATIONS Generic Name Dose Route Start Last Admin Trade Name Freq PRN Reason Stop Dose Admin Hydralazine HCl 10 mg 12/13/24 19:24 Hydralazine 20mg/Ml Vial IV 12/13/24 19:25 ONCE ONE Discontinued Medications Generic Name Dose Route Start Last Admin Trade Name Freq PRN Reason Stop Dose Admin Acetaminophen 1,000 mg 12/13/24 18:43 12/13/24 18:50 Acetaminophen 500mg Tab PO 12/13/24 18:44 1,000 mg ONCE ONE Administration Ibuprofen 600 mg 12/13/24 18:43 12/13/24 18:51 Ibuprofen 600 Mg Tablet PO 12/13/24 18:44 600 mg ONCE ONE Administration Morphine Sulfate 4 mg 12/13/24 18:43 12/13/24 18:51 Morphine 4mg/Ml Syringe IV 12/13/24 18:44 4 mg ONCE ONE Administration Ondansetron HCl 4 mg 12/13/24 18:43 12/13/24 18:50 Ondansetron 4mg/2ml Vial IV 12/13/24 18:44 4 mg ONCE ONE Administration ORDERS Category Date Time Status CT bony pelvis Stat Cat Scan 12/13/24 18:[address] cervical spine wo con Stat Cat Scan 12/13/24 18:[address] head/brain wo con Stat Cat Scan 12/13/24 18:[address] lumbar spine wo con Stat Cat Scan 12/13/24 18:29 Completed Medical Decision Narrative: 89-year-old male presenting with fall. Patient has a history of hypertension, hyperlipidemia, dementia. Was reportedly at home with family when he tried to get off the toilet, fell to his left side. States that he hit his head against wall, did not lose consciousness. EMS was called because he was in significant pain. On arrival, patient well-appearing, but in moderate distress secondary to pain. Left lower extremity is held in external rotation, but is not significantly shortened. He does have pulses in his left lower extremity and sensation is intact. No true groin/hip pain. Pain is all lateral, associated bruising overlying left greater trochanter and some pain associated with left pelvic brim. History obtained with patient and EMS. Differential includes femur fracture, pelvic fracture, intracranial bleed, cervical spine injury, among others. Patient given Tylenol, Motrin, morphine and Zofran. Independent interpretation of workup demonstrates left ilium fracture that is comminuted, mildly displaced with associated large pelvic hematoma. No intracranial hemorrhage, cervical spine injury, or acute lumbar spinal injury on independent interpretation. Orthopedics was consulted here and recommended transfer to outside facility given the pelvic hematoma and fracture. [facility] was contacted and case was discussed at length, graciously excepted transfer for fragility fracture fall from standing and pelvic hematoma. Because patient high risk for clinical decompensation if discharged, deemed appropriate for transfer and inpatient admission. Results were relayed to patient who voiced understanding and patient was agreeable to transfer, inpatient admission, and management. Patient was graciously accepted and transferred to [facility] for further definitive management, under Dr. Shea. Log Chipper disclaimer Much of this encounter note is an electronic nursing program coordinator spoken language to printed text. Electronic nursing program coordinator of the spoken language may permit errors. Although I have reviewed the note, some errors may still exist. Critical Care Critical Care Time Critical Care Time: Yes (ortho) Attestation: On 12/13/24, the high probability of a clinically significant, sudden or life threatening deterioration of the following system(s) required my full and direct attention, intervention and personal management. The time I documented below is in addition to time spent performing reported procedures but includes the following listed in this critical care notation. Total Time Total Critical Care Time: 40
--- NOTE | 2024-12-13 19:12 | PC.NURSE ---
Called [facility] at 19:12, said they would call back
[2024-12-13 19:30] VITALS: BP 181/104; PULSE 69; O2SAT 77
[2024-12-13] MEDS: HYDRALAZINE 20MG/ML VIAL 10 MG IV (19:44)
[2024-12-13 22:08] VITALS: BP 95/42; PULSE 84; RESP 18; TEMP 36.4; O2SAT 97
== END 2024-12-13 21:38 | disposition short-term general hospital (02) ==
PROVIDERS: Emergency Provider Emergency Medicine; PCP Family Medicine
DX: S32.302A Unspecified fracture of left ilium, initial encounter for closed fracture (principal); S30.0XXA Contusion of lower back and pelvis, initial encounter; M25.552 Pain in left hip; W01.0XXA Fall on same level from slipping, tripping and stumbling without subsequent striking against object, initial encounter; Y93.89 Activity, other specified; Y92.002 Bathroom of unspecified non-institutional (private) residence as the place of occurrence of the external cause
CPT/HCPCS: 70450; 72125; 72131; 72192; 96374; 96375; 99291; J0360; J2270; J2405